=== PATIENT | female | born 1950 | race Caucasian/White ===

== ENCOUNTER 2024-11-17 08:05 | Outpatient (CLI) | payer MEDICARE, SELFPAY ==
--- NOTE | ~2024-11-17 | US_ITS ---
Thyroid ultrasound. Clinical History: Abnormal hormone levels Findings: Real-time sonography of the thyroid gland was performed. The right lobe measures 4.3 x 1.9 x 1.8 cm. The left lobe measures 4.5 x 1.5 x 1.3 cm. The isthmus is 3 mm in AP diameter. Thyroid parenchyma is somewhat heterogeneous. There is a 1.1 x 0.9 x 0.8 cm hyperechoic solid nodule at the right upper pole. There is an additional 1.0 x 0.8 x 1.0 cm hyperechoic nodule at the posterio r aspect of the right midpole. Impression: 2 separate TR-3 right thyroid lobe nodules, as above. Annual follow-up advised.. Reviewed, dictated and finalized at location . Impression: 2 separate TR-3 right thyroid lobe nodules, as above. Annual follow-up advised. .
== END 2024-11-17 08:06 | disposition home or self-care (01) ==
LOC: MICIMG 08:09
PROVIDERS: PCP Internal Medicine; Visit Provider Internal Medicine
DX: Z12.31 Encounter for screening mammogram for malignant neoplasm of breast (principal); E04.2 Nontoxic multinodular goiter; R89.1 Abnormal level of hormones in specimens from other organs, systems and tissues; Z78.0 Asymptomatic menopausal state
CPT/HCPCS: 76536

== ENCOUNTER 2025-04-15 15:00 | Inpatient (IN) | payer MEDICARE, SELFPAY ==
[2025-04-15] VITALS (21 sets, daily range): BP systolic 128–177; BP diastolic 51–79; PULSE 77–100; RESP 12–21; TEMP 36.7–36.8; O2SAT 88–100; BMI 42.7
--- NOTE | ~2025-04-15 | XR_ITS ---
EXAMINATION: XR tibia fibula RT 2V DATE: 04/15/2025 15:45 INDICATION: Injury TECHNIQUE: Right leg and ankle x-rays were obtained. COMPARISON: None. FINDINGS: Tibiotalar subluxation with lateral displacement of the talus; nondisplaced fractures of the distal tibia and fibula may be present in the ankle. Subluxation is approximately 50%. Extensive soft tissue swelling and joint effusion. The proximal portions of the tibia and fibula appear intact with degenerative changes in the knee. IMPRESSION: 1. Approximately 50% subluxation of the tibiotalar joint with nondisplaced fractures possibly present. See also ankle x-rays same day. Reviewed, dictated and finalized at location A. E HANGER IMPRESSION: 1. Approximately 50% subluxation of the tibiotalar joint with nondisplaced frac tures possibly present. See also ankle x-rays same day.
--- NOTE | ~2025-04-15 | XR_ITS ---
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 Findings: The tibia is displaced medially. There are avulsion fractures of the medial and lateral malleoli. There is a nondisplaced fracture of the distal fibula. Severe degenerative changes. Diffuse soft tissue swelling. Impression: Fracture dislocation detailed above Reviewed, dictated and finalized at location P. BOARD INSERTER Impression: Fracture dislocation detailed above
--- NOTE | ~2025-04-15 | XR_ITS ---
XR ankle RT 2V INDICATION: post reduction . COMPARISON: 04/15/2025 FINDINGS: Frontal, lateral and oblique views of the right ankle demonstrate interval reduction of medial and lateral malleolus fracture dislocation with improvement in alignment. There is persistent widening of the medial clear space. There is no soft tissue swelling. No radiopaque foreign body is seen. IMPRESSION: Reduction of medial and lateral malleolus fracture with improvement in alignment. Reviewed, dictated and finalized at location S. DRESSING ENGINEER IMPRESSION: Reduction of medial and lateral malleolus fracture with improvement in alignmen t.
[2025-04-15] MEDS: ONDANSETRON INJ 4 MG/2 ML VIAL IV PUSH (15:50)
[2025-04-15] MEDS: MORPHINE SULFATE (*CRX) 4 MG/ML INJ 2 MG IV PUSH (15:50)
--- NOTE | 2025-04-15 16:57 | ED_ITS ---
HPI - Extremity Injury (Lower) General Chief Complaint: Extremity Injury, Lower <JODIE Bustos Last Filed: 04/15/25 19:03> Stated Complaint: ankle pain <JODIE Bustos Last Filed: 04/15/25 19:03> Source: patient <JODIE Bustos Last Filed: 04/15/25 19:03> Mode of arrival: EMS <JODIE Bustos Last Filed: 04/15/25 19:03> Limitations: no limitations <JODIE Bustos Last Filed: 04/15/25 19:03> History of Present Illness HPI Narrative: Patient is 74-year-old female, past medical history of hypertension, hyperlipidemia, who presents to the ED via EMS with report of right ankle pain. Patient reports she was walking down her steps and was attempting to push open the door that she thought was locked. The door was unlocked and she fell forward, twisting her right ankle. Complains of pain and swelling to her right ankle, unable to ambulate. EMS was called. Denies any head injury or LOC. Denies numbness. <JODIE Bustos Last Filed: 04/15/25 19:03> Related Data Allergies/Adverse Reactions: Allergies Allergy/AdvReac Type Severity Reaction Status Date / Time Penicillins Allergy Unknown Verified 07/19/15 11:55 <Veronica Serrano PA-C - Last Filed: 04/15/25 19:03> Review of Systems 2 Review of Systems: All systems reviewed & are unremarkable except as noted in HPI. <JODIE Bustos Last Filed: 04/15/25 19:03> All systems reviewed & are unremarkable except as noted in HPI and below < JODIE Bustos Last Filed: 04/15/25 19:03> Exam 2 Narrative: GENERAL: Well appearing, obese with BMI of 39.5, non-toxic, in no acute distress. HEAD: Normocephalic, atraumatic. RESPIRATORY: Airway patent, respirations nonlabored. Clear to auscultation bilaterally, no rales, rhonchi, wheezing. CARDIOVASCULAR: Regular rate and rhythm without murmurs, rubs, or gallops. Pedal pulses intact and easily palpable MUSCULOSKELETAL: Diffuse swelling, bruising throughout right ankle joint with possible lateral deformity of talus. Diffuse tenderness throughout R ankle. Sensation intact. Able to wiggle toes. No significant tenderness throughout mid tib/fib or over right anterior knee. SKIN: Warm, dry, normal color. NEURO: A&O X3. Speech clear. Cranial nerves II-XII grossly intact. No ataxic movements. PSYCHIATRIC: Appropriate mood and affect. Normal interaction. <Veronica Serrano PA-C - Last Filed: 04/15/25 19:03> Course BLOCK MECHANIC/PA Physician Supervision This visit was performed by both a physician and an Advanced Practice Provider. I performed all aspects of the Medical Decision Making as documented. <Kwan Marshall DO - Last Filed: 04/15/25 19:36> Vital Signs Vital signs: Vital Signs Temperature 98.3 F 04/15/25 15:03 Pulse Rate 80 04/15/25 15:03 Respiratory Rate 12 04/15/25 15:03 Blood Pressure 167/77 H 04/15/25 15:03 Pulse Oximetry 99 04/15/25 15:03 Oxygen Delivery Room Air 04/15/25 15:03 Temperature 98.3 F 04/15/25 15:03 Pulse Rate 79 04/15/25 19:09 Respiratory Rate 18 04/15/25 19:09 Blood Pressure 156/51 H 04/15/25 19:09 Pulse Oximetry 91 04/15/25 19:09 Oxygen Delivery Room Air 04/15/25 19:09 Oxygen Flow Rate 2 04/15/25 18:40 <Veronica Serrano PA-C - Last Filed: 04/15/25 19:03> Vital Signs Temperature 98.3 F 04/15/25 15:03 Pulse Rate 80 04/15/25 15:03 Respiratory Rate 12 04/15/25 15:03 Blood Pressure 167/77 H 04/15/25 15:03 Pulse Oximetry 99 04/15/25 15:03 Oxygen Delivery Room Air 04/15/25 15:03 Temperature 98.3 F 04/15/25 15:03 Pulse Rate 79 04/15/25 19:09 Respiratory Rate 18 04/15/25 19:09 Blood Pressure 156/51 H 04/15/25 19:09 Pulse Oximetry 91 04/15/25 19:09 Oxygen Delivery Room Air 04/15/25 19:09 Oxygen Flow Rate 2 04/15/25 18:40 <Kwan Marshall DO - Last Filed: 04/15/25 19:36> Procedures Orthopedic Fracture Reduction Fracture #1: Fracture Reduction date: 04/15/25 <Veronica Serrano PA-C - Last Filed: 04/15/25 19:03> Fracture Reduction time: 18:30 <Veronica Serrano PA-C - Last Filed: 04/15/25 19:03> Time Out Performed: Yes <JODIE Bustos Last Filed: 04/15/25 19:03> Side: right <JODIE Bustos Last Filed: 04/15/25 19:03> Fracture Reduction Location: tibia <JODIE Bustos Last Filed: 04/15/25 19:03> Analgesia: procedural sedation <JODIE Bustos Last Filed: 04/15/25 19:03> Pre-Procedure Neuro Vascular Exam: normal <JODIE Bustos Last Filed: 04/15/25 19:03> Technique: direct manipulation <JODIE Bustos Last Filed: 04/15/25 19:03> Post Reduction X-rays Demonstrate: acceptable reduction <JODIE Bustos Last Filed: 04/15/25 19:03> Post-reduction neuro exam: intact and no change <JODIE Bustos Last Filed: 04/15/25 19:03> Post-reduction vascular exam: intact and no change <JODIE Bustos Last Filed: 04/15/25 19:03> Splint Applied: Yes <JODIE Bustos Last Filed: 04/15/25 19:03> Patient Tolerated Procedure: well and no complications <JODIE Bustos Last Filed: 04/15/25 19:03> Orthopedic Splinting/Casting Injury #1: Splinting/Casting Date: 04/15/25 <JODIE Bustos Last Filed: 04/15/25 19:03> Splinting/Casting Time: 18:35 <Veronica Serrano PA-C - Last Filed: 04/15/25 19:03> Side: right <JODIE Bustos Last Filed: 04/15/25 19:03> Lower Extremity Injury Location: ankle <JODIE Bustos Last Filed: 04/15/25 19:03> Lower Extremity Immobilizer: posterior splint and stirrup splint <JODIE Bustos Last Filed: 04/15/25 19:03> Splint: customized in ED <JODIE Bustos Last Filed: 04/15/25 19:03> Pre-Procedure Neuro Vascular Exam: normal <JODIE Bustos Last Filed: 04/15/25 19:03> Post-Procedure Neuro Vascular Exam: normal <JODIE Bustos Last Filed: 04/15/25 19:03> Procedural Sedation Procedural Sedation #1: Procedural Sedation Date: 04/15/25 <DO Jose Harvey Last Filed: 04/15/25 19:36> Procedural Sedation Time: 18:30 <DO Jose Harvey Last Filed: 04/15/25 19:36> Presedation Evaluation: AOx4 <Kwan Marshall DO - Last Filed: 04/15/25 19:36> Procedure: R ankle fracture closed reduction <Kwan Marshall DO - Last Filed: 04/15/25 19:36> Provider Performed: sedation and procedure (I oversaw all aspect of the reduction and assisted as needed) <Kwan Marshall DO - Last Filed: 04/15/25 19:36> Time Out: 1830 <Kwan Marshall DO - Last Filed: 04/15/25 19:36> Informed Consent Obtained: yes <Kwan Marshall - Last Filed: 04/15/25 19:36> Equipment in Room: bag and mask, capnography, cardiac nurse specialist, crash cart, oxygen, pulse oximeter and suction <Kwan Marshall - Last Filed: 04/15/25 19:36> Plan for Sedation: moderate sedation <Kwan Marshall - Last Filed: 04/15/25 19:36> ASA Class: III <Kwan Marshall - Last Filed: 04/15/25 19:36> Mallampati Classification: class III <Kwan Marshall - Last Filed: 04/15/25 19:36> NPO Status: last solid food (hours ago) and last liquid food (hours ago) < Kwan Marshall - Last Filed: 04/15/25 19:36> Explanation to Patient/Family: Risk/Benefits/Alternatives and Pt/Family agreed with plan <Kwan Marshall - Last Filed: 04/15/25 19:36> Pt. Educated on Procedural Sedation: Yes <Kwan Marshall - Last Filed: 04/15/25 19:36> Re-evaluated immediately prior: Yes <Kwan Marshall DO Last Filed: 04/15/25 19:36> Preparation: cardiac nurse specialist applied, pulse oximeter, capnometry used, supplemental O2 applied, suction/airway equipment at bedside and IV secured < Kwan Marshall - Last Filed: 04/15/25 19:36> Fentanyl: IV <Kwan Marshall - Last Filed: 04/15/25 19:36> Fentanyl dose (mcg): 50 <Kwan Marshall Last Filed: 04/15/25 19:36> IV Propofol dose (mg): 100 <Kwan Marshall DO Last Filed: 04/15/25 19:36> Patient Tolerated Procedure: well <Kwan Marshall DO - Last Filed: 04/15/25 19:36> Complications: hypoxia <Kwan Marshall DO - Last Filed: 04/15/25 19:36> Interventions: oxygen applied, airway repositioned and assist by BVM <Kwan Marshall DO - Last Filed: 04/15/25 19:36> Total Sedation Time (min): 10 <Kwan Marshall DO - Last Filed: 04/15/25 19:36> MDM - Extremity Injury (Lower) MDM Narrative Medical decision making narrative: X-ray of right ankle showing significant displacement of talus with at least bimalleolar fracture. Patient is neurovascularly intact. Discussed case with Dr. Herrera, orthopedics, reviewed images himself, recommended reduction of fracture, splint, admit, will consult. Patient will not be able to tolerate crutches, will require admission for further eval. Closed reduction performed with Dr. Marshall under procedural sedation. Patient tolerated procedure well. Placed in short leg posterior splint with stirrup. Post reduction film shows improvement in alignment. Discussed case with Jenn Ling NP hospitalist, accepted patient for admission. Patient is in agreement with plan/admission. <Veronica Serrano PA-C - Last Filed: 04/15/25 19:03> X-ray of right ankle showing significant displacement of talus with at least bimalleolar fracture. Patient is neurovascularly intact. Discussed case with Dr. Herrera, orthopedics, reviewed images himself, recommended reduction of fracture, splint, admit, will consult. Patient will not be able to tolerate crutches, will require admission for further eval. Closed reduction performed with Dr. Marshall under procedural sedation. Patient tolerated procedure well. Placed in short leg posterior splint with stirrup. Post reduction film shows improvement in alignment. Discussed case with Jenn Ling NP hospitalist, accepted patient for admission. Patient is in agreement with plan/admission. This visit was performed by both a physician and an Advanced Practice Provider. I performed all aspects of the Medical Decision Making as documented. <Kwan Marshall DO - Last Filed: 04/15/25 19:36> Differential Diagnosis Differential diagnosis: Likely other (Fracture, sprain, strain, contusion) <Kwan Mrashall DO - Last Filed: 04/15/25 19:36> Medical Records Attestation: I reviewed the patient's medical records. <Veronica Serrano PA-C - Last Filed: 04/15/25 19:03> Lab Data Attestation: I reviewed the patient's lab results. <Veronica Serrano PA-C - Last Filed: 04/15/25 19:03> Result diagrams: 04/15/25 17:22 04/15/25 17:22 <Veronica Serrano PA-C - Last Filed: 04/15/25 19:03> Labs: Lab Results 04/15/25 Range/Units 17:22 WBC 8.5 (4.5-10.0) K/mm3 RBC 4.53 (4.2-5.4) M/mm3 Hgb 12.6 (12.0-15.0) g/dL Hct 39.6 (37.0-47.0) % MCV 87.4 (80-100) fl MCH 27.8 (26-34) pg MCHC 31.8 L (32-36) g/dl RDW 13.5 (11.5-14.5) % Plt Count 178 (150-375) k/mm3 MPV 9.5 (7.4-10.4) fl Immature Gran % (Auto) 0.5 (0-0.5) % Neut % (Auto) 84.1 H (45.5-73.1) % Lymph % (Auto) 9.0 L (18.3-44.2) % [place] % (Auto) 5.7 (2.6-8.5) % Eos % (Auto) 0.5 (0-4.4) % Baso % (Auto) 0.2 (0.2-1.2) % Lymph # (Auto) 0.76 L (0.9-3.2) K/mm3 [place] # (Auto) 0.5 (0.1-0.6) K/mm3 Eos # (Auto) 0.0 (0-0.3) K/mm3 Baso # (Auto) 0.0 (0.0-0.1) K/mm3 Abs Immat Gran (auto) 0.04 H (0.00-0.031) K/mm3 Absolute Neuts (auto) 7.1 H (1.3-6.7) K/mm3 Absolute Nucleated RBC 0.000 (0.0-0.012) K/mm3 Nucleated RBC % 0.0 (0.0-0.2) % PT 14.2 (11.1-14.7) Seconds INR 1.1 APTT 25.7 (22.3-36.8) Seconds Sodium 139 (137-145) mmol/L Potassium 3.9 (3.4-5.0) mmol/L Chloride 102 (98-107) mmol/L Carbon Dioxide 29 (22-30) mmol/L Anion Gap 8 (4-12) mmol/L BUN 14 (7-17) mg/dL Creatinine 0.75 (0.7-1.0) mg/dL Estim Creat Clear Calc 62 ml/min Estimated GFR > 60 (59 - ) Glucose 117 H (65-110) mg/dL Calcium 9.3 (8.4-10.2) mg/dL Total Bilirubin 0.6 (0.2-1.3) mg/dL AST 44 H (14-36) U/L ALT 20 (6-35) U/L Alkaline Phosphatase 107 (38-126) U/L Total Protein 7.3 (6.3-8.2) g/dL Albumin 4.3 (3.5-5.1) g/dL <Veronica Serrano PA-C - Last Filed: 04/15/25 19:03> Lab Results 04/15/25 Range/Units 17:22 WBC 8.5 (4.5-10.0) K/mm3 RBC 4.53 (4.2-5.4) M/mm3 Hgb 12.6 (12.0-15.0) g/dL Hct 39.6 (37.0-47.0) % MCV 87.4 (80-100) fl MCH 27.8 (26-34) pg MCHC 31.8 L (32-36) g/dl RDW 13.5 (11.5-14.5) % Plt Count 178 (150-375) k/mm3 MPV 9.5 (7.4-10.4) fl Immature Gran % (Auto) 0.5 (0-0.5) % Neut % (Auto) 84.1 H (45.5-73.1) % Lymph % (Auto) 9.0 L (18.3-44.2) % [place] % (Auto) 5.7 (2.6-8.5) % Eos % (Auto) 0.5 (0-4.4) % Baso % (Auto) 0.2 (0.2-1.2) % Lymph # (Auto) 0.76 L (0.9-3.2) K/mm3 [place] # (Auto) 0.5 (0.1-0.6) K/mm3 Eos # (Auto) 0.0 (0-0.3) K/mm3 Baso # (Auto) 0.0 (0.0-0.1) K/mm3 Abs Immat Gran (auto) 0.04 H (0.00-0.031) K/mm3 Absolute Neuts (auto) 7.1 H (1.3-6.7) K/mm3 Absolute Nucleated RBC 0.000 (0.0-0.012) K/mm3 Nucleated RBC % 0.0 (0.0-0.2) % PT 14.2 (11.1-14.7) Seconds INR 1.1 APTT 25.7 (22.3-36.8) Seconds Sodium 139 (137-145) mmol/L Potassium 3.9 (3.4-5.0) mmol/L Chloride 102 (98-107) mmol/L Carbon Dioxide 29 (22-30) mmol/L Anion Gap 8 (4-12) mmol/L BUN 14 (7-17) mg/dL Creatinine 0.75 (0.7-1.0) mg/dL Estim Creat Clear Calc 62 ml/min Estimated GFR > 60 (59 - ) Glucose 117 H (65-110) mg/dL Calcium 9.3 (8.4-10.2) mg/dL Total Bilirubin 0.6 (0.2-1.3) mg/dL AST 44 H (14-36) U/L ALT 20 (6-35) U/L Alkaline Phosphatase 107 (38-126) U/L Total Protein 7.3 (6.3-8.2) g/dL Albumin 4.3 (3.5-5.1) g/dL <Kwan Marshall DO - Last Filed: 04/15/25 19:36> Imaging Data Attestation: I personally reviewed and interpreted this imaging study as follows: < Veronica Serrano PA-C - Last Filed: 04/15/25 19:03> Radiologist's impression: ITS Impressions Tibia/Fibula X-Ray 04/15/25 15:46 IMPRESSION: 1. Approximately 50% subluxation of the tibiotalar joint with nondisplaced fractures possibly present. See also ankle x-rays same day. Ankle X-Ray 04/15/25 15:47 Impression: Fracture dislocation detailed above Ankle X-Ray 04/15/25 18:52 IMPRESSION: Reduction of medial and lateral malleolus fracture with improvement in alignment. <Veronica Serrano PA-C - Last Filed: 04/15/25 19:03> Discharge Plan Discharge Clinical Impression: Closed fracture dislocation of ankle joint Qualifiers: Encounter type: initial encounter Laterality: right Qualified Code(s): S82.891A - Other fracture of right lower leg, initial encounter for closed fracture Bimalleolar fracture of right ankle Qualifiers: Encounter type: initial encounter Fracture type: closed Qualified Code(s): S 82.841A - Displaced bimalleolar fracture of right lower leg, initial encounter for closed fracture Fall down stairs Qualifiers: Encounter type: initial encounter Qualified Code(s): W10.8XXA - Fall (on) (from) other stairs and steps, initial encounter <JODIE Bustos Last Filed: 04/15/25 19:03> Patient Disposition: Still a Patient <JODIE Bustos Last Filed: 04/15/25 19:03> Condition: Stable <JODIE Bustos Last Filed: 04/15/25 19:03> Patient Language: Greek <JODIE Bustos Last Filed: 04/15/25 19:03> Follow-up/Referrals: Pablo,MD Luis Enrique [Primary Care Provider, Unknown] <JODIE Bustos Last Filed: 04/15/25 19:03>
[2025-04-15 17:40] LABS: Hematocrit 39.6 % (37.0-47.0); Hemoglobin 12.6 g/dL (12.0-15.0); Immature Granulocyte Percent A 0.5 % (0-0.5); Lymphocytes Absolute Auto 0.76 K/mm3 (0.9-3.2); Mean Corpuscular HGB Conc 31.8 g/dl (32-36); Mean Corpuscular Hemoglobin 27.8 pg (26-34); Mean Corpuscular Volume 87.4 fl (80-100); Nucleated Red Blood Cells Absolute Auto 0.000 K/mm3 (0.0-0.012); Nucleated Red Blood Cells Perc 0.0 % (0.0-0.2); Platelet Count Result 178 k/mm3 (150-375); Red Blood Count 4.53 M/mm3 (4.2-5.4); White Blood Count 8.5 K/mm3 (4.5-10.0)
[2025-04-15 17:43] LABS: INR 1.1; Prothrombin Time 14.2 Seconds (11.1-14.7)
[2025-04-15 17:44] LABS: Partial Thromboplastin Time 25.7 Seconds (22.3-36.8)
[2025-04-15 18:19] LABS: Alanine Aminotransferase 20 U/L (6-35); Albumin Level 4.3 g/dL (3.5-5.1); Alkaline Phosphatase 107 U/L (38-126); Anion Gap 8 mmol/L (4-12); Aspartate Amino Transferase 44 U/L (14-36); Bilirubin,Total 0.6 mg/dL (0.2-1.3); Blood Urea Nitrogen 14 mg/dL (7-17); Calcium 9.3 mg/dL (8.4-10.2); Carbon Dioxide 29 mmol/L (22-30); Chloride 102 mmol/L (98-107); Estimated CRCL calculation 62 ml/min; Estimated Glomerular Filt Rate > 60; Glucose 117 mg/dL (65-110); Potassium 3.9 mmol/L (3.4-5.0); Sodium 139 mmol/L (137-145); Total Protein 7.3 g/dL (6.3-8.2)
--- NOTE | 2025-04-15 18:21 | PC.NURSE ---
informed procedural consent signed per the patient.
[2025-04-15] MEDS: PROPOFOL IV EMULSION 200 MG/20 ML VIAL 100 MG IV PUSH (18:25)
[2025-04-15] MEDS: fentaNYL CITRATE INJ (*CRX) 100 MCG/2 ML VIAL 50 MCG IV PUSH (18:25)
[2025-04-15] MEDS: SODIUM CHLORIDE 0.9% IV 1,000 ML 999 ML (18:30)
--- OUTSIDE RECORDS SUMMARY | 2025-04-15 19:34 | XMS_ITS | Clinical Summary ---
Author Organization [facility] Address [address] [place] [id number] Care Team Providers Care Dinkey Operator Slate Name Role Phone Unavailable Primary Care Provider Unavailabl e Social History Tobacco Use Types Packs/Day Years Used Date Smoking Tobacco: Never Assessed Comments Unknown Sex and Gender Information Value Date Recorded Sex Assigned at Not on file Legal Sex Female 7:05 PM CDT Gender Identity Not on file Sexual Orientation Not on file Plan of Treatment Health Maintenance Due Date Last Done Comments Colorectal Cancer Screening Colonoscopy (10 Years) 1950 Hepatitis C 1968 DTaP, Tdap and Td Vaccines ( 1 - Tdap) 1969 Mammogram Screening 1990 Pneumococcal Vaccine: 50+ Ye ars (1 of 1 - PCV) 2000 Zoster Vaccines (1 of 2) 2000 Dexa Scan (General) 08/20/2015 COVID-19 Vaccine ( - 2024-2 6 season) 2025 Influenza Adult (#1) 2025 RSV Immunization or 60+ Years (1 - 1-dose 75+ series) 2025 Hepatitis A Vaccines Aged Out No long er eligible based on patient's age to complete this topic Meningococcal B Vaccine Aged Out No l onger eligible based on patient's age to complete this topic Meningococcal Vaccine Aged Out No andrea roxanne eligible based on patient's age to complete this topic RSV Immunizations Under 20 Months Aged Out No longer eligible based on patient's age to complete this topic Additional Health Concerns Infection Onset Date Last Indicated MRSA 01/08/2017 01/08/2017
--- OUTSIDE RECORDS SUMMARY | 2025-04-15 19:39 | XMS_ITS | Encounter Summary ---
Author Organization [facility] Address [address] [place] [address] Phone Care Team Providers Care Lead Producer Name Role Phone Slade Shah MD Primary Care Provide r Saray Oakes MD Unavailable [phone] Lilliam Stevens MD PhD Unavailable + Chris Farley MD Unavailable [phone] Encounter Details Date Type Department Care Team (Late st Contact Info) Description 07/07/2017 Orders Only [facility] ProviderBlack MD [address] [place] [id number] Social History Tobacco Use Types Packs/Day Years Used Date Smoking Tobacco: Former Comments Unknown Sex and Gender Information Value Date Recorded Sex Assigned at Not on file 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 Historical Provider LAB BLOOD ORDERABLES Juany l Result documented in this encounter Visit Diagnoses Not on filedocumented in this encounter Care Teams Lead Producer Relationship Specialty Start Date End Date Slade Shah MD [address] [facility] [address] [place] [address] PCP - General 04/29/17 Saray Oakes MD [address] [facility] [address] [place] [address] Medical Oncologist/Parole Officer Gynecologic Oncology 12/22/17 Lilliam Stevens MD PhD [address] [facility] [address] [place] [address] Radiation Oncologist Radiation Oncology 01/26/18 Chris Farley MD [address] [place] [address] Referring Physician Obstetrics and Gynecology 03/19/17 documented as of this encounter
--- OUTSIDE RECORDS SUMMARY | 2025-04-15 19:40 | XMS_ITS ---
Author Organization [facility] Address [address] [place] [id number] Care Team Providers Care Ob/Gyn Physician Name Role Phone Slade Shah MD Primary Care Provide r Saray Oakes MD Unavailable [phone] Lilliam Stevens MD PhD Unavailable + Chris Farley MD Unavailable [phone] Active Problems Problem Noted Date Diagnosed Date Unspecified nonsuppurative otitis media, right e ar 09/29/2024 Vitamin D deficiency 02/11/2024 Thyroid nodule 02/20/2023 Leukopenia 11/18/2022 Abnormal serum thyroid stimulating hormone (TSH) level 11/14/2022 Thrombocytopenic disorder 11/14/2022 Neuropathy 11/14/2022 Prediabetes 11/14/2022 Vaginal mass 11/14/2022 Hyperlipidemia 11/12/2019 Pernicious anemia 11/12/2019 Sprain of ankle 11/12/2019 Essential hypertension 10/30/2018 Vaginal stenosis 10/24/2017 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 Past Treatment and Therapy Plans Oncology Chemotherapy Treatment Plan Name Start Date Discontinue Date Treatment Medications Discontinue Reason Plan Provider Cycles DOCEtaxel / CARBOplatin 21 Day Cycles - [employer] CONSULTANT 9 08/11/2019 CARBOplatin (by AUC:GOG) (PARAPLATIN)CA RBOplatin (PARAPLATIN) IVPB in 250 mL (by AUC: GOG)DOCEtaxel (TAXOTERE)DOCE taxel (TAXOTERE) IVPB in 250 mL (vial 10mg/mL) No Evidence of Disease Saray Oakes MD 8 of 9 cycles completed PACLItaxel / CARBOplatin (AUC 5) 21 Day Cycles - [employer] CONSULTANT 05/16/20 17 06/22/2018 CARBOplatin (by AUC:GOG) (PARAPLATIN)CA RBOplatin (PARAPLATIN) IVPB in 250 mL (by AUC: GOG)DOCEtaxel (TAXOTERE)DOCE taxel (TAXOTERE) IVPB in 250 mL (vial 20mg/mL)PACLit arleth (TAXOL) Therapy Complete Saray Oakes MD 7 of 7 cycles started Radiation Treatments * Course C1_Pelvis 05/21/2017 - 07/08/2017 Treatment Period Energy Fraction Dose Fractions Total Dose Plans Planned PELVIS # 05/21/2017 - 07/08/2017 180 28 / 5,040 Reference Points Delivered PTV_Final 05/21/2017 - 07/08/2017 5,040 Lifetime Dose Tracking * Chemical Lifetime Dose Automatic Entry Manual Entr y DLP 29,682 mGycm 29,682 mGycm 0 mGycm Resolved Problems Problem Noted Date Diagnosed Date Resolved Date Elevated cancer antigen 125 (CA-125) 10/13/2017 12/12/2017
--- OUTSIDE RECORDS SUMMARY | 2025-04-15 19:40 | XMS_ITS | Clinical Summary ---
Author Organization [facility] Address [facility] [place] [address] Care Team Providers Care Legal Recruiter Name Role Phone Slade Shah MD Primary Care Provide r Saray Oakes MD Unavailable [phone] Lilliam Stevens MD PhD Unavailable + Chirs Farley MD Unavailable [phone] Allergies Active Allergy Reactions Criticality Noted Date Comments Carboplatin Itching Low 03/05/2019 Penicillins Hives Medium 03/13/2017 Medications atorvastatin (LIPITOR) 10 mg tablet 08/14/19 18 Active metoprolol XL (TOPROL-XL) 100 mg 24 hr tablet 08/14/19 18 Active nystatin-emolli ent combo no.54 100,000 unit/gram creamIndication s:cutaneous candidiasis Apply 1 application topically 2 (two) times a day as needed (redness) 1 kit 1 01/05/20 19 Active lidocaine-prilo brittany creamIndication s:Administratio n of Local Anesthesia Apply topically as needed for pain Apply 1 hour prior to IV access and cover. 30 g 1 12/05/19 23 Active gabapentin (NEURONTIN) 300 mg capsule TAKE 1 CAPSULE(300 MG) BY MOUTH THREE TIMES DAILY 270 capsule 1 03/07/20 25 Active cyanocobalamin (Vitamin B-12) 1,000 mcg/mL injection ADM 1 ML SC Q MONTH Active doxycycline (doxycycline hyclate) 100 mg capsule Take 1 tablet/capsule (100 mg total) by mouth 2 (two) times a day Active ergocalciferol (VITAMIN D) 50,000 unit capsule TK 1 C PO 1 TIME WEEKLY FOR 8 WEEKS Active LORazepam (ATIVAN) 0.5 mg tabletIndicatio ns:Cancer Chemotherapy-In duced Nausea and Vomiting Place 1 tablet (0.5 mg total) under the tongue every 6 (six) hours as needed (nausea or vomiting) 30 tablet 1 10/24/19 19 020 Discontinued Active Problems Problem Noted Date Diagnosed Date [...] of overlapping sites of cervi x 03/13/2017 Resolved Problems Problem Noted Date Diagnosed Date Resolved Date Elevated cancer antigen 125 (CA-125) 10/13/2017 12/12/2017 Encounters Date Type Department Care Team Description 03/22/2025 10:20 AM CDT Office Visit [facility] Medicine Obstetrics and Gynecology [address] [facility] 13th [place] [address] [place] [address] Saray Oakes MD Encounter for routine cancer follow-up (Primary Dx); Carcinosarcoma of endometrium (HCC); Peripheral neuropathy due to chemotherapy from Last 3 Months Immunizations Immunization Administration Dates Next Due Moderna SARS-CoV-2 Monovalen t Vaccination (12+ YRS) 08/18/2020,07/25/2020,07/25/2020 Pfizer SARS-CoV-2 Monovalent Vaccination (12+ Yrs) PURPLE 09/12/2021,08/18/2020 Surgical History Surgery Date Site/Laterality Comments [place] LIG/TRNSXJ FLP TUBE ABDL/ VAG APPR UNI/BI Tubal Ligation - (Added by TW Conv) ANKLE SURGERY Ankle Repair - (Added by TW Conv) HYSTERECTOMY US GUIDED BIOPSY LYMPH NODE SUPERFICIAL LEFT 10/08/2018 N/A US GUIDED BIOPSY ABDOMEN RETROPERITONEAL 02/21/2023 N/A Medical History Medical History Date Comments Abnormal uterine and vaginal bleeding, unspecified Vaginal bleeding, abnormal - (Added by TW Conv) Other specified abnormal fin dings of blood chemistry Elevated serum creatinine - (Added by TW Conv) 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) 03/13/2017 Family History Medical History Relation Name Comments Heart disease Father 72 Family history of cardiac disorder - (Added by TW Conv) Relation Name Status Comments Father 72 Mother 95 Social History Tobacco Use Types Packs/Day Years Used Date Smoking Tobacco: Former Smokeless Tobacco: Never Tobacco Cessation:Counseling Given: Not Answered Alcohol Use Standard Drinks/Week Comments No 0 (1 standard drink = 0.6 oz pur e alcohol) Comments No Sex and Gender Information Value Date Recorded Sex Assigned at Not on file Legal Sex 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 Gender Identity Female 02/18/2020 10:22 AM CDT Sexual Orientation Not on file Obstetrics History Para Term AB IAB SAB Ectopic Multiple Livin g Live Births 0 0 0 0 0 0 0 0 0 0 0 Last Filed Vital Signs Vital Sign Reading Time Taken Comments Blood Pressure 199/82 03/22/2025 10:43 AM CDT Pulse 70 03/22/2025 10:43 AM CDT Temperature 36.5 C (97.7 F) 03/22/2025 10:43 AM CDT Respiratory Rate 16 03/22/2025 10:43 AM CDT Oxygen Saturation 96% 03/22/2025 10:43 AM CDT Inhaled Oxygen Concentration - - Weight 103.9 kg (229 lb) 03/22/2025 10:43 AM CDT Height 157.5 cm (5' 2.01) 03/22/2025 10:43 AM C DT Body Mass Index 41.87 03/22/2025 10:43 AM CDT Plan of Treatment Health Maintenance Due Date Last Done Comments Breast Cancer Screening-Mammogram 1950 Colon Cancer Screening-Colonoscopy 1950 Depression Screening 1950 Fall Risk Assessment 1950 Hepatitis C Screening 1950 DTaP/Tdap/Td Vaccine (1 - Tdap) 1961 Hepatitis B Screening 1968 Pneumococcal vaccine 65+ (1 of 1 - PCV) 2000 Zoster Vaccine (1 of 2) 2000 Well Visit 65+ 08/20/2015 Osteoporosis Screening-Bone Density Scan 11/10/2023 11/09/2021 Covid-19 Vaccine (8 - 2024-2 6 season) 2025 09/12/2021, 09/12/2021, 02/26/2021, Additional history exists Influenza Vaccine (#1) 2025 Procedures Procedure Name Priority Date/Time Associated Diagnosis Comments CA 125 Routine 03/15/2025 10:02 AM CDT Carcinosarcoma of endometrium (HCC) from Last 3 Months Results * (ABNORMAL) CA 125 (03/15/2025 10:02 AM CDT) CA 125 ag 77(H) <35 U/mL [facility] Comment: This test was performed using the Siemens Chemiluminescent method. Values obtained from different assay methods cannot be used interchangeably. CA 125 levels, regardless of value, should not be interpreted as absolute evidence of the presence or absence of disease. Blood 03/15/2025 10:0 2 AM CDT 03/15/2025 10:03 AM CDT Saray Oakes MD LAB BLOOD ORDERABLES nal Result [facility] [address] [facility] [place] [address] from Last 3 Months Insurance MEDICARE [facility] [address] MEDICARE [facility] [place] [address] MEDICARE [facility] Advance Directives For more information, please contact: [phone] * Full Code (Latest Code Status on File) Date Activated Date Inactivated Comments 02/21/2023 7:55 AM 02/22/2023 4:43 AM Care Teams Legal Recruiter Relationship Specialty Start Date End Date Slade Shah MD [address] [facility] [address] [place] [address] PCP - General 04/29/17 Saray Oakes MD [address] [facility] [address] [place] [address] Medical Oncologist/Television Mechanic Gynecologic Oncology 12/22/17 Lilliam Stevens MD PhD [address] [facility] [address] [place] [address] Radiation Oncologist Radiation Oncology 01/26/18 Chris Farley MD [facility] [place] [address] Referring Physician Obstetrics and Gynecology 03/19/17
--- NOTE | 2025-04-15 19:56 | WPCEDHO ---
ED Hand Off Checklist All vitals saved: yes IV Site documented: yes All med administrations documented: yes Triage Note Triage Note patient here per [facility] 04/15/25 15:03 from home after falling through door after thinking it was latched closed; patient twisted and landed onto right lower extremity. right foot +CMS came in splinted per EMS. patient is alert and oriented Allergies Penicillins Allergy (Unknown, Verified 07/19/15 11:55) Administered/Completed Medications Discontinued Medications Fentanyl Citrate (Fentanyl Citrate Inj (*Crx) 100 Mcg/2 Ml Vial) 50 mcg IV PUSH ONCE STA Stop: 04/15/25 17:51 Last Admin: 04/15/25 18:25 Dose: 50 mcg Documented By: HALLIE Comments: administered by Dr Marshall Sodium Chloride (Normal Saline Iv) Confirm Administered Dose 1,000 mls @ as directed .ROUTE .STK-MED ONE Stop: 04/15/25 18:28 Last Infusion: 04/15/25 19:53 Dose: Infused Documented By: Admin: 04/15/25 18:30 Dose: 999 mls/hr Documented By: HALLIE Morphine Sulfate (Morphine Sulfate (*Crx) 4 Mg/Ml Inj) 2 mg IV PUSH ONCE STA Stop: 04/15/25 15:26 Last Admin: 04/15/25 15:50 Dose: 2 mg Documented By: LIANA Ondansetron HCl (Ondansetron Inj 4 Mg/2 Ml Vial) 4 mg IV PUSH ONCE STA Stop: 04/15/25 15:26 Last Admin: 04/15/25 15:50 Dose: 4 mg Documented By: LIANA Propofol (Propofol Iv Emulsion 200 Mg/20 Ml Vial) 100 mg IV PUSH ONCE ONE Stop: 04/15/25 17:51 Last Admin: 04/15/25 18:25 Dose: 100 mg Documented By: HALLIE Comments: 50mcg 1825 25mcg 1828 25mcg 1829 Notes 04/15/25 18:21 Nurse Note by Kari Ball informed procedural consent signed per the patient. Initialized on 04/15/25 18:21 - END OF NOTE Interventions/Assessments IV / Saline Lock, Insert Start: 04/15/25 15:25 Freq: ONCE Status: Active Protocol: Document 04/15/25 15:49 LIANA (Rec: 04/15/25 15:49 LDD [id number]) IV Assessment Peripheral Access Right Antecubital IV Catheter Access Initiated IV Insertion Date 04/15/25 IV Insertion Time 15:49 Catheter Gauge 20 IV Insertion 1 Attempts Ultrasound Used for No Placement IV Site Assessment WNL IV Care and WNL Maintenance Last Vital Signs Temperature 98.3 F 04/15/25 15:03 Pulse Rate 85 04/15/25 19:41 Respiratory Rate 20 04/15/25 19:41 Pulse Oximetry 91 04/15/25 19:41 Blood Pressure 149/61 H 04/15/25 19:41 Blood Pressure Mean 82 04/15/25 19:41 Oxygen Delivery Room Air 04/15/25 19:09 Oxygen Flow Rate 2 04/15/25 18:40 Weight 98 kg 04/15/25 15:03 Last Result - Abnormals Only MCHC 31.8 g/dl (32-36) L 04/15/25 17:22 Neut % (Auto) 84.1 % (45.5-73.1) H 04/15/25 17:22 Lymph % (Auto) 9.0 % (18.3-44.2) L 04/15/25 17:22 Lymph # (Auto) 0.76 K/mm3 (0.9-3.2) L 04/15/25 17:22 Abs Immat Gran (auto) 0.04 K/mm3 (0.00-0.031) H 04/15/25 17:22 Absolute Neuts (auto) 7.1 K/mm3 (1.3-6.7) H 04/15/25 17:22 Glucose 117 mg/dL (65-110) H 04/15/25 17:22 AST 44 U/L (14-36) H 04/15/25 17:22 Most Recent Suicide Severity Rating Suicide Severity Rating NO RISK INDICATED 04/15/25 15:03
--- NOTE | 2025-04-15 20:41 | ADMGEN ---
This patient, Mary Rodriguez, was admitted to Medical Room 254-01. Patient/family oriented to hospital policies and general routines including ID bracelet, bed and alarms, visiting hours, pain management, procedures, bathroom and other care routines, personal items, smoking policy, room service/diet, and visiting hours. Information on how to activate the Rapid Response Team has been discussed. Patient/Family are encouraged to report perceived risks to care and to ask questions if they do not understand what they are told or what they should do.
[2025-04-15] MEDS: HYDROcodone/acetaminophen (*CRX) 5-325 MG TABLET 1 TAB PO (21:26)
--- NOTE | 2025-04-15 22:52 | P.HP_ITS ---
H&P: HPI History of Present Illness Date/Time: 04/15/25 22:52 Chief Complaint: Ground level fall Narrative: 74-year-old female presents to [facility] ER on 04/15/2025 after a ground level fall. H ovarian cancer 2017 status post chemo and radiation with peripheral neuropathy as adverse effect. She lives at home with . She was walking down her steps and attempted to push open a door she thought was locked, it was in fact open and she fell through it. She twisted her right ankle. No head injury or loss of consciousness. Transported by EMS. X-ray right tibia fibula two view demonstrates approximately 50% subluxation of the tibiotalar joint. Tibia is displaced medially, avulsion fracture of the medial and lateral malleoli, nondisplaced fracture of the distal fibula. Severe degenerative changes and diffuse soft tissue swelling. Two view right ankle x- ray status post subluxation reduction in the ER demonstrates improvement in alignment. Orthopedic surgery consulted from ER. Short-leg posterior splint with stirrup placed. Review of Systems Review of Systems: All systems reviewed & are unremarkable except as noted in HPI and below (Subjective) [facility] Family History Family History (Updated 04/15/25 @ 20:48 by Aspen Landin RN) Father Acute myocardial infarction Congestive heart failure Mother Hypertension Social History Social History Smoking status: Former smoker Alcohol intake: never Substance use: never Lack of Transportation: No Lack of Food: Never True Current Housing: I Have Housing Concerned About Future Housing: No Difficulty Paying Gas/Electric Bills: No Difficulty Paying for Meds: No Currently Unemployed: No Education: High School Diploma/GED Difficulty w/ Childcare or Family Care: No Spiritual care concerns: No Meds Home Medications and Allergies Home Medications ?Medication ?Instructions ?Recorded ?Confirmed ?Type atorvastatin 10 mg tablet 10 mg PO QPM 04/15/25 History gabapentin 300 mg capsule 300 mg PO TID 04/15/2504/15 History metoprolol succinate 100 mg 150 mg PO DAILY 04/15/25 1 06/15/24 History tablet,extended release 24 hr Allergies Allergy/AdvReac Type Severity Reaction Status Date / Time Penicillins Allergy Intermediate Hives Verified 04/15/25 20:46 Vital Signs Vital Signs - 24 hr 04/15/25 15:03 04/15/25 15:18 04/15/25 17:08 Temperature 98.3 F Pulse Rate 80 77 83 Pulse Rate [Monitor] Respiratory Rate 12 16 15 Blood Pressure 167/77 H 170/62 H Blood Pressure [Left Arm] Pulse Oximetry 99 99 100 Oxygen Delivery Room Air Oxygen Flow Rate 04/15/25 17:33 04/15/25 17:45 04/15/25 18:20 Temperature Pulse Rate 91 81 Pulse Rate [Monitor] 92 Respiratory Rate 17 13 18 Blood Pressure 170/73 H Blood Pressure [Left Arm] 169/60 H Pulse Oximetry 94 94 90 Oxygen Delivery Nasal Cannula Oxygen Flow Rate 2 04/15/25 18:25 04/15/25 18:30 04/15/25 18:35 Temperature Pulse Rate Pulse Rate [Monitor] 100 89 82 Respiratory Rate 16 18 14 Blood Pressure Blood Pressure [Left Arm] 153/75 H 177/71 H 128/57 L Pulse Oximetry 99 88 L 99 Oxygen Delivery Nasal Cannula Bag Valve Mask Nasal Cannula Oxygen Flow Rate 2 2 04/15/25 18:40 04/15/25 18:40 04/15/25 18:55 Temperature Pulse Rate Pulse Rate [Monitor] 94 87 77 Respiratory Rate 20 18 18 Blood Pressure Blood Pressure [Left Arm] 143/79 H 128/55 L 139/54 L Pulse Oximetry 94 91 90 Oxygen Delivery Nasal Cannula Room Air Room Air Oxygen Flow Rate 2 04/15/25 19:01 04/15/25 19:06 04/15/25 19:09 Temperature Pulse Rate 88 80 Pulse Rate [Monitor] 79 Respiratory Rate 16 15 18 Blood Pressure 139/54 L 156/51 H Blood Pressure [Left Arm] 156/51 H Pulse Oximetry 89 L 91 91 Oxygen Delivery Room Air Oxygen Flow Rate 04/15/25 19:11 04/15/25 19:16 04/15/25 19:26 Temperature Pulse Rate 81 79 82 Pulse Rate [Monitor] Respiratory Rate 17 15 16 Blood Pressure 144/63 H 138/59 L 153/52 H Blood Pressure [Left Arm] Pulse Oximetry 90 92 92 Oxygen Delivery Oxygen Flow Rate 04/15/25 19:31 04/15/25 19:36 04/15/25 19:41 Temperature Pulse Rate 84 83 85 Pulse Rate [Monitor] Respiratory Rate 14 21 H 20 Blood Pressure 139/63 160/64 H 149/61 H Blood Pressure [Left Arm] Pulse Oximetry 91 91 91 Oxygen Delivery Oxygen Flow Rate 04/15/25 20:45 04/15/25 20:58 Temperature 98.1 F Pulse Rate 90 Pulse Rate [Monitor] Respiratory Rate 18 Blood Pressure 169/63 H Blood Pressure [Left Arm] Pulse Oximetry 98 Oxygen Delivery Room Air Oxygen Flow Rate Exam Const: General: comfortable and no acute distress HENMT: Mouth: Yes moist mucous membranes Eyes: Pupils: Equal, round and reactive pupils present Neck: Neck: supple Resp: Effort & Inspection: normal respiratory effort Auscultation: clear to auscultation bilaterally Cardio: Rate: regular rate Rhythm: regular rhythm GI: Inspection: non-distended GI Palp: Yes Soft to palpation Extrem: General: edema Other: Neurovascular exam intact H&P: Results Labs Labs: Short CBC 04/15/25 Range/Units 17:22 WBC 8.5 (4.5-10.0) K/mm3 Hgb 12.6 (12.0-15.0) g/dL Hct 39.6 (37.0-47.0) % Plt Count 178 (150-375) k/mm3 BMP 04/15/25 17:22 Sodium 139 Potassium 3.9 Chloride 102 Carbon Dioxide 29 BUN 14 Creatinine 0.75 Glucose 117 H Calcium 9.3 Liver Function 04/15/25 Range/Units 17:22 Total Bilirubin 0.6 (0.2-1.3) mg/dL AST 44 H (14-36) U/L ALT 20 (6-35) U/L Alkaline Phosphatase 107 (38-126) U/L Albumin 4.3 (3.5-5.1) g/dL Assessment and Plan Assessment and plan (1) Closed fracture dislocation of ankle joint: Qualifiers: Encounter type: initial encounter Laterality: right Qualified Code(s): S82.891A - Other fracture of right lower leg, initial encounter for closed fracture Code(s): S82.899A - Other fracture of unspecified lower leg, initial encounter for closed fracture Status: Acute (2) Fall down stairs: Qualifiers: Encounter type: initial encounter Qualified Code(s): W10.8XXA - Fall (on) (from) other stairs and steps, initial encounter Code(s): W10.8XXA - Fall (on) (from) other stairs and steps, initial encounter Status: Acute Plan 74-year-old female presents to [facility] ER on 04/15/2025 after a ground level fall. [facility] ovarian cancer 2017 status post chemo and radiation with peripheral ev ropathy as adverse effect. She lives at home with . She was walking down her steps and attempted to push open a door she thought was locked, it was in fact open and she fell through it. She twisted her right ankle. No head injury or loss of consciousness. Transported by EMS. X-ray right tibia fibula two view demonstrates approximately 50% subluxation of the tibiotalar joint. Tibia is displaced medially, avulsion fracture of the medial and lateral malleoli, nondisplaced fracture of the distal fibula. Severe degenerative changes and diffuse soft tissue swelling. Two view right ankle x- ray status post subluxation reduction in the ER demonstrates improvement in alignment. Orthopedic surgery consulted from ER. Short-leg posterior splint with stirrup placed. ----- NPO. Bed rest. Orthopedic consultation. Tylenol, morphine p.r.n.. Patient educated about adverse effects risks and benefits of medications. ----- P.T./OT. Saline lock IV Fall precautions. Hospitalist [facility] Advance Care Plan I have confirmed that the patient's Advanced Care Plan is present, code status is documented, or surrogate decision maker is listed in patient medical record.: Yes Medication Reconciliation I have utilized all available resources to obtain, update and review the patients current medications (includes all prescriptions, OTC, herbals, cannabis, and nutritional supplements).: Yes
[2025-04-16 04:22] VITALS: BP 161/63; PULSE 87; RESP 18; TEMP 36.3; O2SAT 99
[2025-04-16] MEDS: HYDROcodone/acetaminophen (*CRX) 5-325 MG TABLET 1 TAB PO ×3 (08:39→20:31)
[2025-04-16] MEDS: GABAPENTIN 300 MG CAPSULE PO ×3 (08:39→17:50)
[2025-04-16 13:11] VITALS: PULSE 80
[2025-04-16] MEDS: METOPROLOL SUCCINATE EXT REL 50 MG TABCR 150 MG PO (13:11)
--- NOTE | 2025-04-16 13:43 | PM.IMPN ---
Progress Note: A&P Assessment and Plan (1) Closed fracture dislocation of ankle joint: Qualifiers: Encounter type: initial encounter Laterality: right Qualified Code(s): S82.891A - Other fracture of right lower leg, initial encounter for closed fracture Code(s): S82.899A - Other fracture of unspecified lower leg, initial encounter for closed fracture Status: Acute Assessment and Plan: -X-ray right tibia fibula two view demonstrates approximately 50% subluxation of the tibiotalar joint. Tibia is displaced medially, avulsion fracture of the medial and lateral malleoli, nondisplaced fracture of the distal fibula. Severe degenerative changes and diffuse soft tissue swelling. -s/p subluxation in ER with placement of short-leg posterior splint with stirrup. -Two view right ankle x-ray status post subluxation reduction in the ER demonstrates improvement in alignment. -Orthopedic surgery consulted from ER. -NWB to RLE -pain control -plan for surgery later this week, Friday or -PT/OT consult to determine if patient is safe to go home while NWB -CC following (2) Fall down stairs: Qualifiers: Encounter type: initial encounter Qualified Code(s): W10.8XXA - Fall (on) (from) other stairs and steps, initial encounter Code(s): W10.8XXA - Fall (on) (from) other stairs and steps, initial encounter Status: Acute Assessment and Plan: -Fall precautions -PT/OT (3) Peripheral neuropathy: Code(s): G62.9 - Polyneuropathy, unspecified Status: Acute Assessment and Plan: result of chemotherapy she received in 2017 continue home gabapentin Subjective Date/time seen: 04/16/25 13:43 Interval history: Patient seen for a follow up visit. Patient lying in bed, in no acute distress. Patient reports pain is currently controlled [facility] current pain medicine regimen. Orthopedic surgery is consulted. Plan will be for patient to return later in the week on Friday or for surgery. Patient will need to be NWB to RLE. PT/OT consulted to assess if patient is safe for discharge home. Review of Systems Review of Systems: All systems reviewed & are unremarkable except as noted in HPI and below (Subjective) Exam Const: General: comfortable and no acute distress HENMT: Mouth: Yes moist mucous membranes Eyes: General: appearance normal, both eyes and all related structures Sclera: sclerae normal Pupils: Equal, round and reactive pupils present Neck: Neck: supple Resp: Effort & Inspection: normal respiratory effort Auscultation: clear to auscultation bilaterally Cardio: Rate: regular rate Rhythm: regular rhythm GI: Inspection: non-distended GI Palp: Yes Soft to palpation Auscultation: normal bowel sounds Neuro: Cranial nerves: Yes Equal, round and reactive pupils present Speech: normal speech Motor exam (neuro): 5/5 motor strength present throughout Extrem: General: edema Other: Neurovascular exam intact RLE in splint Psych: Mental Status: mental status grossly normal Affect: normal affect Objective Data Vital Signs Vital Signs: Vital Signs - 24 hr 04/15/25 15:03 04/15/25 15:18 04/15/25 17:08 Temperature 98.3 F Pulse Rate 80 77 83 Pulse Rate [Monitor] Respiratory Rate 12 16 15 Blood Pressure 167/77 H 170/62 H Blood Pressure [Left Arm] Pulse Oximetry 99 99 100 Oxygen Delivery Room Air Oxygen Flow Rate 04/15/25 17:33 04/15/25 17:45 04/15/25 18:20 Temperature Pulse Rate 91 81 Pulse Rate [Monitor] 92 Respiratory Rate 17 13 18 Blood Pressure 170/73 H Blood Pressure [Left Arm] 169/60 H Pulse Oximetry 94 94 90 Oxygen Delivery Nasal Cannula Oxygen Flow Rate 2 04/15/25 18:25 04/15/25 18:30 04/15/25 18:35 Temperature Pulse Rate Pulse Rate [Monitor] 100 89 82 Respiratory Rate 16 18 14 Blood Pressure Blood Pressure [Left Arm] 153/75 H 177/71 H 128/57 L Pulse Oximetry 99 88 L 99 Oxygen Delivery Nasal Cannula Bag Valve Mask Nasal Cannula Oxygen Flow Rate 2 2 04/15/25 18:40 04/15/25 18:40 04/15/25 18:55 Temperature Pulse Rate Pulse Rate [Monitor] 94 87 77 Respiratory Rate 20 18 18 Blood Pressure Blood Pressure [Left Arm] 143/79 H 128/55 L 139/54 L Pulse Oximetry 94 91 90 Oxygen Delivery Nasal Cannula Room Air Room Air Oxygen Flow Rate 2 04/15/25 19:01 04/15/25 19:06 04/15/25 19:09 Temperature Pulse Rate 88 80 Pulse Rate [Monitor] 79 Respiratory Rate 16 15 18 Blood Pressure 139/54 L 156/51 H Blood Pressure [Left Arm] 156/51 H Pulse Oximetry 89 L 91 91 Oxygen Delivery Room Air Oxygen Flow Rate 04/15/25 19:11 04/15/25 19:16 04/15/25 19:26 Temperature Pulse Rate 81 79 82 Pulse Rate [Monitor] Respiratory Rate 17 15 16 Blood Pressure 144/63 H 138/59 L 153/52 H Blood Pressure [Left Arm] Pulse Oximetry 90 92 92 Oxygen Delivery Oxygen Flow Rate 04/15/25 19:31 04/15/25 19:36 04/15/25 19:41 Temperature Pulse Rate 84 83 85 Pulse Rate [Monitor] Respiratory Rate 14 21 H 20 Blood Pressure 139/63 160/64 H 149/61 H Blood Pressure [Left Arm] Pulse Oximetry 91 91 91 Oxygen Delivery Oxygen Flow Rate 04/15/25 20:45 04/15/25 20:58 04/16/25 04:22 Temperature 98.1 F 97.3 F L Pulse Rate 90 87 Pulse Rate [Monitor] Respiratory Rate 18 18 Blood Pressure 169/63 H 161/63 H Blood Pressure [Left Arm] Pulse Oximetry 98 99 Oxygen Delivery Room Air Oxygen Flow Rate 04/16/25 13:11 Temperature Pulse Rate 80 Pulse Rate [Monitor] Respiratory Rate Blood Pressure Blood Pressure [Left Arm] Pulse Oximetry Oxygen Delivery Oxygen Flow Rate Intake/Output Intake/Output: Intake & Output 04/13/25 04/14/25 04/15/25 04/16/25 23:59 23:59 23:59 23:59 Intake Total 1000 200 Balance 1000 200 Meds/Results Medications: Active Medications Generic Name Dose Route Start Last Admin Trade Name Freq PRN Reason Stop Dose Admin Acetaminophen 650 mg 04/15/25 18:54 Acetaminophen 325 Mg Tablet PO Q4H PRN Mild Pain (1-3) or Fever Hydrocodone Bitart/Acetaminophen 1 tab 04/15/25 18:54 04/16/25 13:05 Hydrocodone/Acetaminophen (*Crx) 5-325 Mg Tablet PO 1 tab Q4H PRN Administration Pain Rated 4-6 Atorvastatin Calcium 10 mg 04/16/25 18:00 Atorvastatin 10 Mg Tablet PO QPM RIGOBERTO Gabapentin 300 mg 04/16/25 09:00 04/16/25 13:05 Gabapentin 300 Mg Capsule PO 300 mg TID RIGOBERTO Administration Metoprolol Succinate 150 mg 04/16/25 09:00 04/16/25 13:11 Metoprolol Succinate Ext Rel 50 Mg Tabcr PO 150 mg DAILY RIGOBERTO Administration Morphine Sulfate 4 mg 04/15/25 18:54 Morphine Sulfate (*Crx) 4 Mg/Ml Inj IV PUSH Q2H PRN Pain Rated 7-10 Ondansetron HCl 4 mg 04/15/25 18:54 Ondansetron Inj 4 Mg/2 Ml Vial IV PUSH Q4H PRN Nausea Radiology Results: ITS Impressions Tibia/Fibula X-Ray 04/15/25 15:46 IMPRESSION: 1. Approximately 50% subluxation of the tibiotalar joint with nondisplaced fractures possibly present. See also ankle x-rays same day. Ankle X-Ray 04/15/25 18:52 IMPRESSION: Reduction of medial and lateral malleolus fracture with improvement in alignment. Labs Labs: Laboratory Results - last 24 hr 04/15/25 17:22 WBC 8.5 RBC 4.53 Hgb 12.6 Hct 39.6 MCV 87.4 MCH 27.8 MCHC 31.8 L RDW 13.5 Plt Count 178 MPV 9.5 Immature Gran % (Auto) 0.5 Neut % (Auto) 84.1 H Lymph % (Auto) 9.0 [place] % (Auto) 5.7 Eos % (Auto) 0.5 Baso % (Auto) 0.2 Lymph # (Auto) 0.76 [place] # (Auto) 0.5 Eos # (Auto) 0.0 Baso # (Auto) 0.0 Abs Immat Gran (auto) 0.04 H Absolute Neuts (auto) 7.1 H Absolute Nucleated RBC 0.000 Nucleated RBC % 0.0 PT 14.2 INR 1.1 APTT 25.7 Sodium 139 Potassium 3.9 Chloride 102 Carbon Dioxide 29 Anion Gap 8 BUN 14 Creatinine 0.75 Estim Creat Clear Calc 62 Estimated GFR > 60 Glucose 117 H Calcium 9.3 Total Bilirubin 0.6 AST 44 H ALT 20 Alkaline Phosphatase 107 Total Protein 7.3 Albumin 4.3 Quality VTE Prophylaxis VTE prophylaxis: mechanical ordered
[2025-04-16 14:00] VITALS: BP 133/53; PULSE 78; RESP 16; TEMP 36.6; O2SAT 97
--- NOTE | 2025-04-16 15:23 | PM.CNOR ---
Assessment and Plan Assessment and plan (1) Trimalleolar fracture of right ankle: Code(s): S82.851A - Displaced trimalleolar fracture of right lower leg, initial encounter for closed fracture Status: Acute Assessment and Plan: Plan for the patient to undergo a right ankle, open adduction, and internal fixation is an outpatient possibly some time next week, or Friday. We will call the patient to coordinate her surgery for next week. The risk-benefit alternatives to the complications we discussed with the patients may include, but are not limited to: - Infection - Blood vessel injury - DVT - Non-union/non-union requiring additional surgery - Heart rate irritation specifically over the lateral aspect of her ankle that may result in heart rate removal about a year from date of surgery This is the case in less than 15% of patients. History of Present Illness HPI Consult date: 04/16/25 Chief complaint: Right Ankle Trimalleolar Fracture Narrative: The patient is a 74-year-old female who presents with a right ankle trimalleolar fracture that was reduced in the emergency room yesterday, April 15. Apparently, she lives at home with her . Walking down the stairs to her basement, the last two steps she was pushing the door to the basement when she didn't realize the door is budged open, fell forward, got her foot caught up underneath her, and twisted her right ankle. She has a history of a left ankle open reduction internal fixation with Dr. Chuy Prather about 15 years ago. She has a history of neuropathy and she also has a history of ovarian cancer with worsening of the neuropathy apparently after she started some chemotherapy, but the neuropathy predated her chemotherapy. She lives with her , has no children, has one dog, and does not plan on any travel for the rest of the year. She is retired and has been retired since 2017, as is her . She lives in [place], [place]. She does a lot of activities at home but not too much as far as outdoors activity. She does not have a history of diabetes, she has neuropathy, and is thought to be from an unknown cause. And her x-rays prior to the fracture look like she has some degenerative joint disease of the ankle joint that has been going on for quite some time. On exam of the patient, I was at the bedside and interviewed the patient. She was resting comfortably. She's in a very nicely formed and fitted right short leg splint that has no evidence of skin irritation proximate her disc. So she can barely feel me touching her toes. She has no swelling, tendons or deformity of the knee. Contralateral side shows a previous incision site for a bimalloyal ankle fracture that was done about 15 years ago. Today, I had a discussion with the patient, and my recommendation would be for open reduction internal fixation of her right ankle fracture. 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 However, after the reduction, it is somewhat subluxated, and I would recommend open reduction internal fixation. There's a higher risk for this patient having complications after surgery, primarily because of the fact that she has neuropathy. She doesn't appear to be immuno-compromised as far as diabetes or any other issues that I can tell at this time. She was advised that she will be non-weight bearing on this extremity for a minimum of six weeks. Given the fact that she is at a risk for DVT, given the fact that she is immobile at this point, I'd recommend taking aspirin once a day until the time of surgery. She can take it all day up until the time of surgery. We plan on doing surgery sometime next week. Sometime possibly or Friday. She is instructed to keep her right leg elevated above her heart to decrease edema so they can optimize their skin for open reduction internal fixation. The patient understands a treatment plan and having undergone the left ankle open duct internal fixation is very familiar with the process as far as healing and recovery. She is retired from [employer] Family History Family History (Updated 04/15/25 @ 20:48 by Aspen Landin RN) Father Acute myocardial infarction Congestive heart failure Mother Hypertension Social History Social History Smoking status: Former smoker Alcohol intake: never Substance use: never Lack of Transportation: No Lack of Food: Never True Current Housing: I Have Housing Concerned About Future Housing: No Difficulty Paying Gas/Electric Bills: No Difficulty Paying for Meds: No Currently Unemployed: No Education: High School Diploma/GED Difficulty w/ Childcare or Family Care: No Spiritual care concerns: No Meds Home Medications and Allergies Home Medications ?Medication ?Instructions ?Recorded ?Confirmed ?Type atorvastatin 10 mg tablet 10 mg PO QPM 04/15/25 04/15/25 History gabapentin 300 mg capsule 300 mg PO TID 04/15/25 04/15/25 History metoprolol succinate 100 mg 150 mg PO DAILY 04/15/25 04/15/25 History tablet,extended release 24 hr Allergies Allergy/AdvReac Type Severity Reaction Status Date / Time Penicillins Allergy Intermediate Hives Verified 04/15/25 20:46 Vital Signs Vital Signs - 24 hr 04/15/25 17:08 04/15/25 17:33 04/15/25 17:45 Temperature Pulse Rate 83 91 81 Pulse Rate [Monitor] Respiratory Rate 15 17 13 Blood Pressure 170/62 H 170/73 H Blood Pressure [Left Arm] Pulse Oximetry 100 94 94 Oxygen Delivery Oxygen Flow Rate 04/15/25 18:20 04/15/25 18:25 04/15/25 18:30 Temperature Pulse Rate Pulse Rate [Monitor] 92 100 89 Respiratory Rate 18 16 18 Blood Pressure Blood Pressure [Left Arm] 169/60 H 153/75 H 177/71 H Pulse Oximetry 90 99 88 L Oxygen Delivery Nasal Cannula Nasal Cannula Bag Valve Mask Oxygen Flow Rate 2 2 04/15/25 18:35 04/15/25 18:40 04/15/25 18:40 Temperature Pulse Rate Pulse Rate [Monitor] 82 94 87 Respiratory Rate 14 20 18 Blood Pressure Blood Pressure [Left Arm] 128/57 L 143/79 H 128/55 L Pulse Oximetry 99 94 91 Oxygen Delivery Nasal Cannula Nasal Cannula Room Air Oxygen Flow Rate 2 2 04/15/25 18:55 04/15/25 19:01 04/15/25 19:06 Temperature Pulse Rate 88 80 Pulse Rate [Monitor] 77 Respiratory Rate 18 16 15 Blood Pressure 139/54 L 156/51 H Blood Pressure [Left Arm] 139/54 L Pulse Oximetry 90 89 L 91 Oxygen Delivery Room Air Oxygen Flow Rate 04/15/25 19:09 04/15/25 19:11 04/15/25 19:16 Temperature Pulse Rate 81 79 Pulse Rate [Monitor] 79 Respiratory Rate 18 17 15 Blood Pressure 144/63 H 138/59 L Blood Pressure [Left Arm] 156/51 H Pulse Oximetry 91 90 92 Oxygen Delivery Room Air Oxygen Flow Rate 04/15/25 19:26 04/15/25 19:31 04/15/25 19:36 Temperature Pulse Rate 82 84 83 Pulse Rate [Monitor] Respiratory Rate 16 14 21 H Blood Pressure 153/52 H 139/63 160/64 H Blood Pressure [Left Arm] Pulse Oximetry 92 91 91 Oxygen Delivery Oxygen Flow Rate 04/15/25 19:41 04/15/25 20:45 04/15/25 20:58 Temperature 36.7 C Pulse Rate 85 90 Pulse Rate [Monitor] Respiratory Rate 20 18 Blood Pressure 149/61 H 169/63 H Blood Pressure [Left Arm] Pulse Oximetry 91 98 Oxygen Delivery Room Air Oxygen Flow Rate 04/16/25 04:22 04/16/25 13:11 04/16/25 14:00 Temperature 36.3 C L 36.6 C Pulse Rate 87 80 78 Pulse Rate [Monitor] Respiratory Rate 18 16 Blood Pressure 161/63 H 133/53 L Blood Pressure [Left Arm] Pulse Oximetry 99 97 Oxygen Delivery Oxygen Flow Rate Exam Narrative: Examined with the patient's right lower extremity shows that she is in a well-fitted up posterior splint, no evidence of skin irritation. It is a posterior ankle splint. She has decreased sensation to her toes, no swelling, tendons or deformity at the knee. The left ankle has incision sites between them and laterally consistent with previous ankle open duct internal fixation. Const: General: cooperative, healthy appearing, comfortable, no acute distress, well developed, alert and awake Nutritional Appearance: overweight Orientation/consciousness: oriented to person, oriented to place and oriented to time Results Labs 04/15/25 17:22 04/15/25 17:22 Labs: Abnormal lab results 04/15/25 Range/Units 17:22 MCHC 31.8 L (32-36) g/dl Neut % (Auto) 84.1 H (45.5-73.1) % Lymph % (Auto) 9.0 L (18.3-44.2) % Lymph # (Auto) 0.76 L (0.9-3.2) K/mm3 Abs Immat Gran (auto) 0.04 H (0.00-0.031) K/mm3 Absolute Neuts (auto) 7.1 H (1.3-6.7) K/mm3 Glucose 117 H (65-110) mg/dL AST 44 H (14-36) U/L H & H 04/15/25 Range/Units 17:22 Hgb 12.6 (12.0-15.0) g/dL Hct 39.6 (37.0-47.0) % Coagulation 04/15/25 Range/Units 17:22 INR 1.1 All other labs normal.
[2025-04-16] MEDS: ATORVASTATIN 10 MG TABLET PO (17:50)
[2025-04-16 20:00] VITALS: O2SAT 99
[2025-04-16 22:00] VITALS: BP 172/70; PULSE 81; RESP 16; TEMP 36.3; O2SAT 99
[2025-04-17] MEDS: HYDROcodone/acetaminophen (*CRX) 5-325 MG TABLET 1 TAB PO ×3 (05:31→18:02)
[2025-04-17 06:00] VITALS: BP 179/79; PULSE 99; RESP 18; TEMP 37.2; O2SAT 97
[2025-04-17 10:03] VITALS: PULSE 77
[2025-04-17] MEDS: METOPROLOL SUCCINATE EXT REL 50 MG TABCR 150 MG PO (10:03)
[2025-04-17] MEDS: GABAPENTIN 300 MG CAPSULE PO ×3 (10:03→21:19)
--- NOTE | 2025-04-17 10:04 | P.PNIM_ITS ---
Progress Note: A&P Assessment and Plan (1) Closed fracture dislocation of ankle joint: Qualifiers: Encounter type: initial encounter Laterality: right Qualified Code(s): S82.891A - Other fracture of right lower leg, initial encounter for closed fracture Code(s): S82.899A - Other fracture of unspecified lower leg, initial encounter for closed fracture Status: Acute Assessment and Plan: -X-ray right tibia fibula two view demonstrates approximately 50% subluxation of the tibiotalar joint. Tibia is displaced medially, avulsion fracture of the medial and lateral malleoli, nondisplaced fracture of the distal fibula. Severe degenerative changes and diffuse soft tissue swelling. -s/p subluxation in ER with placement of short-leg posterior splint with stirrup. -Two view right ankle x-ray status post subluxation reduction in the ER demonstrates improvement in alignment. -Orthopedic surgery consulted from ER. -NWB to RLE -pain control -plan for surgery later this week, -CC following -patient evaluated by PT yesterday and patient was unable to take any steps with the walker, patient reports she cannot use a wheelchair in her house as it is too small, it is recommended for patient to go to SNF as she is not safe to return home currently -patient is agreeable to go to rehab -ortho recommends for patient to start daily aspirin up until the day before surgery, order placed for 81 mg PO daily -elevate RLE above the heart level (2) Fall down stairs: Qualifiers: Encounter type: initial encounter Qualified Code(s): W10.8XXA - Fall (on) (from) other stairs and steps, initial encounter Code(s): W10.8XXA - Fall (on) (from) other stairs and steps, initial encounter Status: Acute Assessment and Plan: -Fall precautions -PT/OT (3) Peripheral neuropathy: Code(s): G62.9 - Polyneuropathy, unspecified Status: Acute Assessment and Plan: result of chemotherapy she received in 2017 continue home gabapentin (4) Essential hypertension: Code(s): I10 - Essential (primary) hypertension Status: Acute Assessment and Plan: patient was continued on her home metoprolol 150 mg PO daily blood pressure was high this AM 179/79 if BP continues to run high add an ACEI or ARB goal BP < 130/80 Subjective Date/time seen: 04/17/25 10:04 Interval history: Patient seen for a follow up visit. Patient lying in bed, in no acute distress. Patient's pain is controlled with current pain regimen. Patient was evaluated by PT yesterday and patient was unable to take any steps with the walker. It is recommended for patient to to to SNF as it does not appear to be safe for patient to return home. Patient is agreeable to go to SNF. Orthopedic surgery saw patient and is planning to operate later this week. It was recommended to start patient on aspirin daily until the day before surgery. Start aspirin 81 mg PO daily. Patient's blood pressure elevated this AM, monitor and if it continues to be elevated start patient on an ACEI or ARB. Review of Systems Review of Systems: All systems reviewed & are unremarkable except as noted in HPI and below (Subjective) Exam Const: General: comfortable and no acute distress HENMT: Mouth: Yes moist mucous membranes Eyes: General: appearance normal, both eyes and all related structures Sclera: sclerae normal Pupils: Equal, round and reactive pupils present Neck: Neck: supple Resp: Effort & Inspection: normal respiratory effort Auscultation: clear to auscultation bilaterally Cardio: Rate: regular rate Rhythm: regular rhythm GI: Inspection: non-distended GI Palp: Yes Soft to palpation Au scultation: normal bowel sounds Neuro: Cranial nerves: Yes Equal, round and reactive pupils present Speech: normal speech Motor exam (neuro): 5/5 motor strength present throughout Extrem: General: edema Other: Neurovascular exam intact RLE in splint Psych: Mental Status: mental status grossly normal Affect: normal affect Objective Data Vital Signs Vital Signs: Vital Signs - 24 hr 04/16/25 13:11 04/16/25 14:00 04/16/25 14:47 Temperature 97.8 F Pulse Rate 80 78 Respiratory Rate 16 Blood Pressure 133/53 L Pulse Oximetry 97 Oxygen Delivery Room Air 04/16/25 20:00 04/16/25 22:00 04/17/25 06:00 Temperature 97.4 F L 98.9 F Pulse Rate 81 99 Respiratory Rate 16 18 Blood Pressure 172/70 H 179/79 H Pulse Oximetry 99 99 97 Oxygen Delivery Room Air Intake/Output Intake/Output: Intake & Output 04/14/25 04/15/25 04/16/25 04/17/25 23:59 23:59 23:59 23:59 Intake Total 1000 1330 100 Output Total 850 250 Balance 1000 480 -150 Meds/Results Medications: Active Medications Generic Name Dose Route Start Last Admin Trade Name Freq PRN Reason Stop Dose Admin Acetaminophen 650 mg 04/15/25 18:54 Acetaminophen 325 Mg Tablet PO Q4H PRN Mild Pain (1-3) or Fever Hydrocodone Bitart/Acetaminophen 1 tab 04/15/25 18:54 04/17/25 05:31 Hydrocodone/Acetaminophen (*Crx) 5-325 Mg Tablet PO 1 tab Q4H PRN Administration Pain Rated 4-6 Atorvastatin Calcium 10 mg 04/16/25 18:00 04/16/25 17:50 Atorvastatin 10 Mg Tablet PO 10 mg QPM RIGOBERTO Administration Gabapentin 300 mg 04/16/25 09:00 04/16/25 17:50 Gabapentin 300 Mg Capsule PO 300 mg TID RIGOBERTO Administration Metoprolol Succinate 150 mg 04/16/25 09:00 04/16/25 13:11 Metoprolol Succinate Ext Rel 50 Mg Tabcr PO 150 mg DAILY RIGOBERTO Administration Morphine Sulfate 4 mg 04/15/25 18:54 Morphine Sulfate (*Crx) 4 Mg/Ml Inj IV PUSH Q2H PRN Pain Rated 7-10 Ondansetron HCl 4 mg 04/15/25 18:54 Ondansetron Inj 4 Mg/2 Ml Vial IV PUSH Q4H PRN Nausea Radiology Results: ITS Impressions Tibia/Fibula X-Ray 04/15/25 15:46 IMPRESSION: 1. Approximately 50% subluxation of the tibiotalar joint with nondisplaced fractures possibly present. See also ankle x-rays same day. Ankle X-Ray 04/15/25 18:52 IMPRESSION: Reduction of medial and lateral malleolus fracture with improvement in alignment. Labs Labs: Laboratory Results - last 24 hr 04/15/25 17:22 WBC 8.5 RBC 4.53 Hgb 12.6 Hct 39.6 MCV 87.4 MCH 27.8 MCHC 31.8 L RDW 13.5 Plt Count 178 MPV 9.5 Immature Gran % (Auto) 0.5 Neut % (Auto) 84.1 H Lymph % (Auto) 9.0 L [place] % (Auto) 5.7 Eos % (Auto) 0.5 Baso % (Auto) 0.2 Lymph # (Auto) 0.76 L [place] # (Auto) 0.5 Eos # (Auto) 0.0 Baso # (Auto) 0.0 Abs Immat Gran (auto) 0.04 H Absolute Neuts (auto) 7.1 H Absolute Nucleated RBC 0.000 Nucleated RBC % 0.0 PT 14.2 INR 1.1 APTT 25.7 Sodium 139 Potassium 3.9 Chloride 102 Carbon Dioxide 29 Anion Gap 8 BUN 14 Creatinine 0.75 Estim Creat Clear Calc 62 Estimated GFR > 60 Glucose 117 H Calcium 9.3 Total Bilirubin 0.6 AST 44 H ALT 20 Alkaline Phosphatase 107 Total Protein 7.3 Albumin 4.3 Quality VTE Prophylaxis VTE prophylaxis: mechanical ordered
[2025-04-17 10:08] VITALS: BP 162/56; PULSE 77; RESP 18; O2SAT 98
[2025-04-17 14:00] VITALS: BP 154/56; PULSE 74; RESP 16; TEMP 36.1; O2SAT 98
[2025-04-17] MEDS: ATORVASTATIN 10 MG TABLET PO (18:00)
[2025-04-17 20:00] VITALS: PULSE 73; RESP 16; O2SAT 97
[2025-04-17 21:12] VITALS: BP 150/62; PULSE 73; RESP 16; TEMP 36.6; O2SAT 97
[2025-04-18 04:34] LABS: Hematocrit 33.5 % (37.0-47.0); Hemoglobin 10.6 g/dL (12.0-15.0); Immature Granulocyte Percent A 0.4 % (0-0.5); Lymphocytes Absolute Auto 0.72 K/mm3 (0.9-3.2); Mean Corpuscular HGB Conc 31.6 g/dl (32-36); Mean Corpuscular Hemoglobin 27.9 pg (26-34); Mean Corpuscular Volume 88.2 fl (80-100); Nucleated Red Blood Cells Absolute Auto 0.000 K/mm3 (0.0-0.012); Nucleated Red Blood Cells Perc 0.0 % (0.0-0.2); Platelet Count Result 136 k/mm3 (150-375); Red Blood Count 3.80 M/mm3 (4.2-5.4); White Blood Count 4.9 K/mm3 (4.5-10.0)
[2025-04-18 04:49] LABS: Alanine Aminotransferase 14 U/L (6-35); Albumin Level 3.6 g/dL (3.5-5.1); Alkaline Phosphatase 83 U/L (38-126); Anion Gap 4 mmol/L (4-12); Aspartate Amino Transferase 20 U/L (14-36); Bilirubin,Total 0.6 mg/dL (0.2-1.3); Blood Urea Nitrogen 11 mg/dL (7-17); Calcium 8.6 mg/dL (8.4-10.2); Carbon Dioxide 29 mmol/L (22-30); Chloride 104 mmol/L (98-107); Estimated CRCL calculation 75 ml/min; Estimated Glomerular Filt Rate > 60; Glucose 117 mg/dL (65-110); Potassium 3.8 mmol/L (3.4-5.0); Sodium 137 mmol/L (137-145); Total Protein 6.5 g/dL (6.3-8.2)
[2025-04-18 05:33] VITALS: BP 129/78; PULSE 91; RESP 16; TEMP 36.6; O2SAT 100
[2025-04-18 08:46] VITALS: PULSE 78
[2025-04-18] MEDS: GABAPENTIN 300 MG CAPSULE PO (08:46)
[2025-04-18] MEDS: HYDROcodone/acetaminophen (*CRX) 5-325 MG TABLET 1 TAB PO (08:46)
[2025-04-18] MEDS: METOPROLOL SUCCINATE EXT REL 50 MG TABCR 150 MG PO (08:46)
[2025-04-18] MEDS: ASPIRIN 81 MG ENTERIC TABLET PO (08:47)
--- NOTE | 2025-04-18 12:34 | P.DS_ITS ---
DS: Admitting Diagnosis Discharge Date 04/18/2025 Admitting Diagnosis closed fracture dislocation of ankle joint fall down stairs DS: Discharge Diagnosis Discharge Diagnosis (1) Closed fracture dislocation of ankle joint: Qualifiers: Encounter type: initial encounter Laterality: right Qualified Code(s): S82.891A - Other fracture of right lower leg, initial encounter for closed fracture Code(s): S82.899A - Other fracture of unspecified lower leg, initial encounter for closed fracture Status: Acute Assessment and Plan: -X-ray right tibia fibula two view demonstrates approximately 50% subluxation of the tibiotalar joint. Tibia is displaced medially, avulsion fracture of the medial and lateral malleoli, nondisplaced fracture of the distal fibula. Severe degenerative changes and diffuse soft tissue swelling. -s/p subluxation in ER with placement of short-leg posterior splint with stirrup. -Two view right ankle x-ray status post subluxation reduction in the ER demonstrates improvement in alignment. -Orthopedic surgery consulted from ER. -NWB to RLE -pain control -plan for surgery later this week, -CC following -patient evaluated by PT yesterday and patient was unable to take any steps with the walker, patient reports she cannot use a wheelchair in her house as it is too small, it is recommended for patient to go to SNF as she is not safe to return home currently -patient is agreeable to go to rehab, however does not qualify -ortho recommends for patient to start daily aspirin up until the day before surgery, order placed for 81 mg PO daily -elevate RLE above the heart level -patient was able to ambulate to bathroom and back to bed with therapy, will discharge home today with [facility] (2) Fall down stairs: Qualifiers: Encounter type: initial encounter Qualified Code(s): W10.8XXA - Fall (on) (from) other stairs and steps, initial encounter Code(s): W10.8XXA - Fall (on) (from) other stairs and steps, initial encounter Status: Acute Assessment and Plan: -Fall precautions -PT/OT (3) Peripheral neuropathy: Code(s): G62.9 - Polyneuropathy, unspecified Status: Acute Assessment and Plan: result of chemotherapy she received in 2017 continue home gabapentin (4) Essential hypertension: Code(s): I10 - Essential (primary) hypertension Status: Acute Assessment and Plan: patient was continued on her home metoprolol 150 mg PO daily blood pressure was high, but improved today DS: Summary Hospital Course Reason for hospitalization: closed fracture dislocation of ankle joint Hospital Course: The patient is a 74-year-old female with a history of ovarian cancer (status post chemotherapy and radiation, complicated by peripheral neuropathy), hypertension, and prior left ankle ORIF, who presented after a ground-level fall down stairs at home. She sustained a right trimalleolar ankle fracture with approximately 50% subluxation of the tibiotalar joint, avulsion fractures of the medial and lateral malleoli, and a nondisplaced distal fibula fracture, with severe degenerative changes and diffuse soft tissue swelling. There was no head injury or loss of consciousness. In the emergency department, the subluxation was reduced and a well-fitted short-leg posterior splint with stirrup was applied. Orthopedic surgery was consulted and recommended open reduction and internal fixation (ORIF) as an outpatient procedure, planned for the following week. During her hospitalization, the patient was maintained non-weight bearing to the right lower extremity, with the leg elevated above heart level to minimize edema. She received pain control with acetaminophen, hydrocodone/acetaminophen, and morphine as needed, and her home medications (atorvastatin, gabapentin, metoprolol) were continued. She was started on aspirin 81 mg daily for DVT prophylaxis until the day before surgery. Physical therapy evaluated the patient, and she was initially unable to ambulate with a walker and was not safe for discharge home; however, after further therapy, she was able to ambulate to the bathroom and back to bed. She was ultimately discharged home with home health care services, as she did not qualify for [place] [facility] facility placement. Her hospital course was otherwise uncomplicated. She remained hemodynamically stable, with blood pressure improved on her home metoprolol. There were no signs of infection or neurovascular compromise in the affected limb. She was educated on fall precautions, non-weight bearing status, and the importance of keeping her leg elevated. She is to follow up with orthopedic surgery for definitive management of her ankle fracture. Time Spent with Patient Time attestation: Total time spent providing and/or coordinating discharge services: 35 Minutes Exam Const: General: comfortable and no acute distress HENMT: Mouth: Yes moist mucous membranes Eyes: General: appearance normal, both eyes and all related structures Sclera: sclerae normal Pupils: Equal, round and reactive pupils present Neck: Neck: supple Resp: Effort & Inspection: normal respiratory effort Auscultation: clear to auscultation bilaterally Cardio: Rate: regular rate Rhythm: regular rhythm GI: Inspection: non-distended Auscultation: normal bowel sounds Neuro: Cranial nerves: Yes Equal, round and reactive pupils present Speech: normal speech Motor exam (neuro): 5/5 motor strength present throughout Extrem: General: edema Other: Neurovascular exam intact RLE in splint Psych: Mental Status: mental status grossly normal Affect: normal affect DS: Data Data Completed and Pending Labs on day of discharge: Labs from last 24 hours 04/18/25 04/18/25 04:11 04:10 WBC 4.9 RBC 3.80 L Hgb 10.6 L Hct 33.5 L MCV 88.2 MCH 27.9 MCHC 31.6 L RDW 13.8 Plt Count 136 L MPV 9.3 Immature Gran % (Auto) 0.4 Neut % (Auto) 70.0 Lymph % (Auto) 14.8 L Ashley % (Auto) 10.9 H Eos % (Auto) 3.5 Baso % (Auto) 0.4 Lymph # (Auto) 0.72 L Ashley # (Auto) 0.5 Eos # (Auto) 0.2 Baso # (Auto) 0.0 Abs Immat Gran (auto) 0.02 Absolute Neuts (auto) 3.4 Absolute Nucleated RBC 0.000 Nucleated RBC % 0.0 Sodium 137 Potassium 3.8 Chloride 104 Carbon Dioxide 29 Anion Gap 4 BUN 11 Creatinine 0.64 L Estim Creat Clear Calc 75 Estimated GFR > 60 Glucose 117 H Calcium 8.6 Total Bilirubin 0.6 AST 20 ALT 14 Alkaline Phosphatase 83 Total Protein 6.5 Albumin 3.6 Preliminary micro results at discharge 04/16/25 04:58 Blood Culture - Preliminary Blood Imaging Radiologist's impression: Ordering Physician: Veronica Serrano PA-C Date of Service: 04/15/25 Procedure(s): XR tibia fibula RT 2V Accession Number(s): [id number] cc: Pablo, Luis Enrique ORTIZ; Veronica Serrano PA-C~ EXAMINATION: XR tibia fibula RT 2V DATE: 04/15/2025 15:45 INDICATION: Injury TECHNIQUE: Right leg and ankle x-rays were obtained. COMPARISON: None. FINDINGS: Tibiotalar subluxation with lateral displacement of the talus; nondisplaced fractures of the distal tibia and fibula may be present in the ankle. Subluxation is approximately 50%. Extensive soft tissue swelling and joint effusion. The proximal portions of the tibia and fibula appear intact with degenerative changes in the knee. IMPRESSION: 1. Approximately 50% subluxation of the tibiotalar joint with nondisplaced fractures possibly present. See also ankle x-rays same day. Reviewed, dictated and finalized at location A. RONMENTAL SCIENCE PROFESSOR Ordering Physician: Veronica Serrano PA-C Date of Service: 04/15/25 Procedure(s): XR ankle RT min 3V Accession Number(s): [id number] cc: Pablo, Luis Enrique ORTIZ; Veronica Serrano PA-C~ EXAMINATION: XR ankle RT min 3V, 04/15/2025 15:40 ENVIRONMENTAL SCIENCE PROFESSOR HISTORY: fall down stairs, pain/bruising COMPARISON: No comparisons available. Findings: The tibia is displaced medially. There are avulsion fractures of the medial and lateral malleoli. There is a nondisplaced fracture of the distal fibula. Severe degenerative changes. Diffuse soft tissue swelling. Impression: Fracture dislocation detailed above Reviewed, dictated and finalized at location P. RONMENTAL SCIENCE PROFESSOR Ordering Physician: Veronica Serrano PA-C Date of Service: 04/15/25 Procedure(s): XR ankle RT 2V Accession Number(s): [id number] cc: Pablo, Luis Enrique ORTIZ; Veronica Serrano PA-C~ XR ankle RT 2V INDICATION: post reduction . COMPARISON: 04/15/2025 FINDINGS: Frontal, lateral and oblique views of the right ankle demonstrate interval reduction of medial and lateral malleolus fracture dislocation with improvement in alignment. There is persistent widening of the medial clear space. There is no soft tissue swelling. No radiopaque foreign body is seen. IMPRESSION: Reduction of medial and lateral malleolus fracture with improvement in alignment. Reviewed, dictated and finalized at location S. RONMENTAL SCIENCE PROFESSOR Discharge Plan Discharge Attending physician on discharge: Matias Nino Consulting providers: Td Herrera Discharging Clinician: Ivy Landa Patient Disposition: Home with Home Health Service Activity: no driving and follow weight bearing status Diet: heart healthy Discharge Instructions: Per Care Coordination, patient to discharge with [facility] ([phone]) for PT/ OT and [place] [facility] services. Agency will call to arrange the initial visit. Non-weight bearing to right lower extremity at all times. Keep your right ankle elevated above the level of the heart to reduce swelling. Keep the splint to your right leg clean and dry. Take asprin 81 mg daily until the day before your scheduled surgery. Post surgery orthopedics will let you know if and how much aspirin to take. Patient Instructions: Antibiotic Form Patient Language: Sinhala Stand Alone Forms: General Discharge Information Follow-up/Referrals: PabloLuis Enrique MD [Primary Care Provider, Unknown] Referral Note: call for an appointment to be seen within 1-2 weeks of discharge Td Herrera MD [Physician, Orthopedics] Referral Note: The office should be calling you with information on your surgery when it is scheduled. If you do not hear from them please reach out. Discharge Medications: New hydrocodone-acetaminophen 5-325 mg tablet 1 tablet PO Q4H PRN (Reason: pain) Qty: 20 0RF acetaminophen 325 mg Tablet 650 mg PO Q4H PRN (Reason: Mild Pain (1-3) Or Fever) Qty: 30 0RF aspirin 81 mg Tablet,Delayed Release (Dr/Ec) 81 mg PO QAM Qty: 30 0RF polyethylene glycol 3350 [Miralax] 17 gram powder in packet 17 g PO DAILY Qty: 30 0RF Continued metoprolol succinate 100 mg tablet extended release 24 hr 150 mg PO DAILY gabapentin 300 mg capsule 300 mg PO TID atorvastatin 10 mg tablet 10 mg PO QPM Date of admission: 04/17/25 13:27 Primary Care Provider: Pablo,Luis Enrique Admitting Provider: Marcella Dudley Attending physician on admission: Marcella Dudley Condition: Stable Quality VTE Prophylaxis VTE prophylaxis: mechanical ordered
== END 2025-04-18 13:35 | disposition home health service (06) | DRG 563 ==
LOC: ANHED 17:06 → ANH2MED 19:55
PROVIDERS: Admitting Provider Internal Medicine; Emergency Provider Physician Assistant; PCP Internal Medicine; Visit Provider Nurse Practitioner Adult Health
DX: S82.841A Displaced bimalleolar fracture of right lower leg, initial encounter for closed fracture (principal); W10.8XXA Fall (on) (from) other stairs and steps, initial encounter; G62.0 Drug-induced polyneuropathy; T45.1X5A Adverse effect of antineoplastic and immunosuppressive drugs, initial encounter; I10 Essential (primary) hypertension; Z85.43 Personal history of malignant neoplasm of ovary
CPT/HCPCS: 27810; 36415; 73590; 73600; 73610; 80053; 85025; 85610; 85730; 87040; 96374; 96375; 97116; 97162; 97166; 97530; 97535; 99285; A9270; G0378; J2270; J2405; J2704; J3010; J7030

== ENCOUNTER 2025-04-22 03:39 | Day surgery (SDC) | payer MEDICARE, SELFPAY ==
[2025-04-20 09:30] VITALS: BMI 38.7
--- NOTE | 2025-04-20 09:57 | PC.NURSE ---
[facility] has started construction of its new state of the art ER which will open Spring 2026. With this, we anticipate parking may be a challenge for some our surgical patients and families. Parking spaces are limited but are available for all Surgical, obstetrics, and ER patients sharing this lot. If you arrive and find you are having a hard time finding a parking space, please note that we understand the challenges, please drive around the hospital and park near Hospital Entrance 1. When you enter this entrance, you can ask a volunteer to direct or take you back to the surgical waiting area to check in. We appreciate everyone?s understanding of these expected challenges while we build for your future. Report to the Outpatient Waiting Room, entrance under the green pavilion located off [address], at time ____10:00AM___ on date __04/22/25 . Planned Procedure Time: ___12:00PM .? Time changes happen often and if your time is changed the preop area will call you the afternoon before. - You and your visitor will be asked to self-screen and do not enter if you have any COVID symptoms. Please call surgeon if you need to reschedule. - A mask is optional within the hospital at this time. Patients may have clear liquids (water, carbonated beverages, clear teas, apple juice) until 3 hours prior to surgery (9:00AM) with a maximum of 20 ounces. - No food from midnight until time of surgery and no smoking, or chewing tobacco (or any form of nicotine). No chewing gum, candy or mints. Take only the following medications with a SIP of water on the morning of surgery: __GABAPENTIN, METOPROLOL MAY TAKE HYDROCODONE NEEDED FOR PAIN DO NOT STOP ANY OF YOUR OTHER PRESCRIPTION MEDICATIONS PRIOR TO SURGERY EXCEPT THE FOLLOWING Hold all vitamins and supplements for 3 days per anesthesiologist. Medications to discontinue per physician ___NO NEED TO HOLD ASPIRIN PER DR CASPER/BUT DON'T TAKE ON DAY OF SURGERY(PER PATIENT)____ HOLD ALL OTHER NSAIDS ( ALEVE) 7 DAYS PRE-OP PER DR CASPER Date to take last dose___STARTING NOW Please no make-up, nail welsh, hairspray, perfume, deodorant, or body powder the day of surgery.? No jewelry (including any body piercings) or valuables the day of surgery, leave them at home.? Please take a shower or bath the night before, or the morning of, surgery with an antibacterial soap.? Wear comfortable, loose fitting clothing.? - Jewelry must be removed prior to entering the operating room.? Rings and piercings that are not removed may be cut off. - The hospital will not accept responsibility for valuables.? - Please leave all valuables, including medications, at home the day of surgery. If you are going home after surgery, a licensed funeral car driver must drive you home.? - NO public transportation without another adult if you receive anesthesia. - We recommend that an adult stay with you for 24 hours following discharge. - We also recommend that you do not drive, make important decision, drink alcoholic beverages, or take any drugs that were not prescribed by your health care provider for at least 24 hours after your discharge time. Follow any additional instructions given to you from your surgeon. Telephone instructions given to ____PATIENT and asked if any additional questions and then verbalized understanding. Patient advised to call surgeon office or pre surgery nurse liaison [phone] if any additional questions.
[2025-04-22] VITALS (10 sets, daily range): BP systolic 138–198; BP diastolic 47–67; PULSE 76–91; RESP 12–16; TEMP 36.4–36.9; O2SAT 97–100
--- NOTE | ~2025-04-22 | XR_ITS ---
EXAM/PROCEDURE: XR surgery orthopedic HISTORY: ORIF RIGHT ANKLE COMPARISON: None available. Fluoroscopic images for orthopedic procedure. Fluoroscopy time: 1 minute 2.5 seconds DAP: 0.4216 Joya per square centimeter Number of images: 1 IMPRESSION: As above. No radiologist present for procedure. See operative/procedure note for complete evaluation. Reviewed, dictated and finalized at location A. INE BUNCH MAKER IMPRESSION: As above. No radiologist present for procedure. See operative/proce dure note for complete evaluation.
[2025-04-22] MEDS: VANCOMYCIN 1,500 MG/NS 500 ML BAG 250 MG IVPB (11:10)
[2025-04-22] MEDS: LACTATED RINGERS 1,000 ML 30 ML IV CONT (11:10)
[2025-04-22] MEDS: ACETAMINOPHEN 500 MG TABLET 1000 MG PO (11:10)
[2025-04-22] MEDS: KETOROLAC 15 MG/ML VIAL (*BKC) IV PUSH (11:10)
[2025-04-22 11:18] LABS: CRP 1.2 mg/dL (<1.0)
--- NOTE | 2025-04-22 11:48 | WPDHPUPDATE1 ---
History and Physical Update Update Date/Time: 04/22/25 11:48 History and Physical has been reviewed, including an updated exam of the patient. There are NO changes in the patient's condition. Risks, benefits, and alternatives have been discussed and questions answered. Patient agrees to proceed with procedure. Patient interview in holding area with . They understand the planned procedure. Right Ankle Open Reduction with plate and screw fixation. - Risks include but are not limited to, infection, nerve injury, bleeding, DVT and they agree to proceed. - alternative, non-surgical management will lead to higher probability of post traumatic arthritis. - goal of surgery is to decrease post traumatic arthritis. 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 - she also has neuropathy (non-diabetic). emphasis on strict non-weight bearing with the setting of neuropathy.
--- NOTE | 2025-04-22 12:03 | WPDANESEPPF ---
Anes - Initial Pre Proc Eval Procedure: Operation Date: 04/22/25 12:00 Proposed Procedures p Open Reduction Internal Fixation of Right Ankle Fracture - Td Herrera MD Date/Time: 04/22/25 12:03 Surgeon: Td Herrera MD Pre Op Diagnosis: right ankle trimalleolar fracture Patient Data Age: 74 Gender: F Height: 1.57 m Weight: 96 kg Allergies Allergy/AdvReac Type Severity Reaction Status Date / Time Penicillins Allergy Intermediate Hives Verified 04/20/25 09:21 carboplatin Allergy hives Verified 04/20/25 09:21 Home Medications ?Medication ?Instructions ?Recorded ?Confirmed ?Type atorvastatin 10 mg tablet 10 mg PO QPM 04/15/25 04/20/25 History gabapentin 300 mg capsule 300 mg PO TID 04/15/25 04/20/25 History metoprolol succinate 100 mg 150 mg PO DAILY 04/15/25 04/20/25 History tablet,extended release 24 hr acetaminophen 325 mg tablet 650 mg (2 x 325 mg) PO Q4H PRN 04/18/25 04/20/25 Rx Mild Pain (1-3) Or Fever #30 tabs aspirin 81 mg tablet,delayed 81 mg PO QAM #30 tabs 04/18/25 04/20/25 Rx release hydrocodone 5 mg-acetaminophen 325 1 tablet PO Q4H PRN pain #20 tabs 04/18/25 04/20/25 Rx mg tablet naproxen sodium 220 mg tablet 220 mg PO Q8-12H PRN pain 04/20/25 04/20/25 History (Aleve) polyethylene glycol 3350 17 gram 17 g PO DAILY PRN constipation 04/20/25 04/20/25 History oral powder packet (Miralax) Laboratory Tests 04/22/25 10:57 C-Reactive Protein 1.2 H mg/dL (<1.0) Patient hx anesthesia problems: none Family hx anesthesia problems: none Results Review: All pre-operative results and documents have been reviewed as part of the pre-operative evaluation. [facility]LY [facility], [facility] Family History Family History (Updated 04/15/25 @ 20:48 by Aspen Landin RN) Father Acute myocardial infarction Congestive heart failure Mother Hypertension Social History Social History Smoking packs per day: 0.5 Smoking cigarettes per day: 10.0 Years smoked: 20 Smoking pack-years: 10.00 Smoking status: Former smoker Tobacco type: cigarettes Smoking end date: 11/30/94 Alcohol intake: never Substance use: never Lack of Transportation: No Lack of Food: Never True Current Housing: I Have Housing Concerned About Future Housing: No Difficulty Paying Gas/Electric Bills: No Difficulty Paying for Meds: No Currently Unemployed: No Education: High School Diploma/GED Difficulty w/ Childcare or Family Care: No Living arrangements: with family Additional living arrangements comments: [facility] Spiritual care concerns: No Anes - Eval Final PreProcedure Day of Procedure 04/22/25 12:03 Patient weight: obese Heart: regular rate and rhythm Lungs: clear to auscultation Airway: Mallampati scale class III Neurological: alert and oriented Last oral intake: >/= 8 hours ASA classification: III Emergent: no Anesthetic plan: proceed Anesthesia type and monitoring: general LMA and standard monitoring Results Review: All pre-operative results and documents have been reviewed as part of the pre-operative evaluation. Informed Consent: The patient's anesthetic plan and its attendant risks and benefits were discussed with the patient/family/POA. Questions were solicited and answers provided to the satisfaction of the patient/family/POA.
--- NOTE | 2025-04-22 12:08 | ECG_ITS ---
Test Date: 2025-04-22 12:23:57 Measurements Intervals [place] Rate: 75 P: 51 NM: 156 QRS: 95 QRSD: 135 T: -8 QT: 414 QTc: 462 Interpretive Statements SINUS RHYTHM RIGHT BUNDLE BRANCH BLOCK [120+ ms QRS DURATION, UPRIGHT V1, 40+ ms S IN I/aVL/V4/V5/V6] No previous ECG available for comparison Electronically Signed On 04-22-2025 19:04:29 NON CDL DRIVER by Patrick Baxter M.D.
[2025-04-22] MEDS: ceFAZolin 2 GM in SODIUM CHLORIDE 0.9% IV 50 ML 100 ML IVPB (12:26)
[2025-04-22] MEDS: LIDO 1%/EPINEPHRINE 1:100,000 50 ML VIAL (12:55)
--- NOTE | 2025-04-22 14:25 | W.PM.PROC2 ---
Procedure Note - Detailed Date of Procedure 04/22/25 Pre-op Diagnosis right ankle bimalleolar fracture Post-op Diagnosis Same Procedure Performed 1. Open Reduction Internal Fixation of Right Ankle Bimalleolar Fracture 2. Intra-Op Fluoroscopy 3. Short Leg Splint application Surgeon Td Herrera MD Anesthesia General Indications Unstable Right Ankle Fracture Findings Unstable Right Ankle Fracture Description of Procedure After obtaining consent and marking the correct extremity in the holding area, the patient was then taken to the OR and placed in the supine position. She then underwent general anesthesia. Splint was removed from the Right Leg, skin examined and noted to be intact with moderate ecchymosis and swelling Right leg was then prepped and draped in the standard sterile fashion. Time out was performed to verify correct site, correct patient as well as correct procedure and to verify that IV abx was administered within 1 hour of incision time. Tourniquet was not used for the procedure. I 1st turned my attention to lateral aspect of the patient's right ankle. I then made an incision approximately 7 in in length dissection was carried down I easily identified the fracture site. I then exposed the fracture site evacuated the hematoma from the fracture site and then proceeded to reduce the fracture. I reduced the fracture with a reduction clamp. I then verified that indeed the fracture was reduced based on direct visualization as well as fluoroscopic views to verify that the medial joint space was no longer widened and equal to the superior joint space of the ankle. After this was done I then placed an anterior to posterior compression screw. I then proceeded to place a plate over the lateral aspect of the patient's ankle. I then proceeded to fill the area holes in the plate both proximal and distal the fracture site. Lateral views were then utilized to verify reduction of the fracture site as well as to verify correct placement of the plate to. I also did a stress view to verify that there indeed was no laxity of the medial space as well as the syndesmotic ligament was intact. Medial space did not widen on stress views. I then irrigated copiously I then closed the incision site using the 2 Vicryl suture in a double layer and then closed the incision site using multiple vertical mattress sutures with a 3-0 nylon suture. The right extremity was then placed in a short-leg splint at 90?. All bony prominences were padded. The patient was then transferred to the recovery room in stable condition. Implants Arthrex Titanium anatomic plate with interfragmentary AP Lag screw. Estimated Blood Loss 50 Tourniquet Time Total Tourniquet Time: 0 Drains No Packing No Pathology None sent Complications No immediate complications Condition Stable Disposition PACU
--- NOTE | 2025-04-22 16:51 | SUR.PHASEII ---
1645: Patient meets criteria for discharge. RN is on hold with pharmacy checking on pain medication.
== END 2025-04-22 16:55 | disposition home or self-care (01) ==
PROVIDERS: PCP Internal Medicine; Visit Provider Orthopaedic Surgery
PROC: (CPT 27822; principal; 2025-04-22 12:00)
DX: S82.851A Displaced trimalleolar fracture of right lower leg, initial encounter for closed fracture (principal); W10.8XXA Fall (on) (from) other stairs and steps, initial encounter; I10 Essential (primary) hypertension; I45.10 Unspecified right bundle-branch block; G62.9 Polyneuropathy, unspecified; E66.9 Obesity, unspecified; Z68.39 Body mass index [BMI] 39.0-39.9, adult; Z79.82 Long term (current) use of aspirin; Z79.891 Long term (current) use of opiate analgesic; Z79.1 Long term (current) use of non-steroidal anti-inflammatories (NSAID); Z87.891 Personal history of nicotine dependence; Z82.49 Family history of ischemic heart disease and other diseases of the circulatory system
CPT/HCPCS: 27822; 36415; 86140; 93005; 99199; J0690; A9270; C1713; J1885; J2003; J2004; J2405; J2704; J3010; J3373; J7120